=== PATIENT | male | born 1955 | race Caucasian/White ===

== ENCOUNTER 2018-07-16 15:01 | Inpatient (IN) | payer MEDICARE, OTHER ==
[~2018-07-16] VITALS: Ht 177.8 cm; Wt 91.6 kg
[2018-07-16] MEDS ORDERED: ASPIRIN81 MG (15:11)
[2018-07-16] MEDS ORDERED: ZYLOPRIM100 MG PO (15:11)
[2018-07-16] MEDS ORDERED: COREG6.25 MG PO (15:12)
[2018-07-16] MEDS ORDERED: COLCRYS0.6 MG PO (15:12)
[2018-07-16] MEDS ORDERED: LEXAPRO10 MG (15:13)
[2018-07-16] MEDS ORDERED: DOK250 MG PO (15:13)
[2018-07-16] MEDS ORDERED: LASIX80 MG PO (15:13)
[2018-07-16] MEDS ORDERED: HUMULIN N100 U/ML SC (15:14)
[2018-07-16] MEDS ORDERED: NEURONTIN 300300 MG PO (15:14)
[2018-07-16] MEDS ORDERED: KLOR-CON M2020 MEQ PO ×2 (15:15→17:44)
[2018-07-16] MEDS ORDERED: LIDOCAINE50 GM TOPICAL (15:15)
[2018-07-16] MEDS ORDERED: SYNTHROID175 MCG PO (15:15)
[2018-07-16] MEDS ORDERED: NITROSTAT0.4 MG SL (15:16)
[2018-07-16] MEDS ORDERED: REGLAN10 MG PO (15:16)
[2018-07-16] MEDS ORDERED: COUMADIN1 MG PO (15:17)
[2018-07-16] MEDS ORDERED: TRADJENTA5 MG PO (15:17)
[2018-07-16] MEDS ORDERED: NYSTATIN OINTME15 GM TOPICAL (15:17)
[2018-07-16] MEDS ORDERED: MULTIPLE VITAMI1 TA1 PO (15:17)
[2018-07-16] MEDS ORDERED: ZANTAC150 MG (15:18)
[2018-07-16 16:47] LABS: ANION GAP 12.1 mmol/L (8-16); CALCIUM 8.7 mg/dL (8.5-10.1); CARBON DIOXIDE 26.5 mmol/L (21.0-32.0); CREATININE - SERUM 4.8 mg/dL (0.6-1.3); POTASSIUM - SERUM 5.6 mmol/L (3.5-5.1)
[2018-07-16] MEDS ORDERED: BENADRYL25 MG PO (17:45)
[2018-07-16] MEDS ORDERED: FISH OIL 1,2001 CAP PO (17:46)
[2018-07-17] VITALS: BP 107/63
[2018-07-17 00:51] VITALS: BP 107/63; BMI 29.0
[2018-07-17 04:00] VITALS: BP 98/61
[2018-07-17 04:32] LABS: BASOPHILS 0.5 % (0-2); EOSINOPHILS 5.6 % (0-7); HEMATOCRIT 37.3 % (42.0-54.0); HEMOGLOBIN 12.4 g/dL (13.5-17.5); IMMATURE GRANULOCYTES 0.2 % (0-5); LYMPHOCYTES 9.6 % (15-50); MCH 30.6 pg (26.0-34.0); MCHC 33.2 g/dL (31.0-37.0); MCV 92.1 fL (80.0-100.0); MEAN PLATELET VOLUME 10.7 fL (7.4-10.4); NEUTROPHILS 73.1 % (40-80); PLATELET COUNT 149 10x3/uL (130-400); RBC 4.05 10x6/uL (4.20-6.10); RDW 15.6 % (11.5-14.5); WBC 9.2 10x3/uL (4.8-10.8)
[2018-07-17 04:53] LABS: ANION GAP 13.2 mmol/L (8-16); CALCIUM 7.9 mg/dL (8.5-10.1); CARBON DIOXIDE 27.2 mmol/L (21.0-32.0)
[2018-07-17 04:54] LABS: POTASSIUM - SERUM 3.4 mmol/L (3.5-5.1)
[2018-07-17 05:05] LABS: INR 1.15 (0.85-1.17); PROTIME 14.3 SECONDS (11.6-15.0)
[2018-07-17 07:57] VITALS: BP 90/61
[2018-07-17 08:00] VITALS: BP 121/80
[2018-07-17 13:16] VITALS: Ht 177.8 cm; Wt 91.6 kg
[2018-07-17 15:29] VITALS: BP 102/58
[2018-07-18 04:33] VITALS: BP 105/59
[2018-07-18 05:27] LABS: BASOPHILS 0.2 % (0-2); EOSINOPHILS 3.6 % (0-7); HEMOGLOBIN 12.7 g/dL (13.5-17.5); IMMATURE GRANULOCYTES 0.1 % (0-5); LYMPHOCYTES 10.7 % (15-50); MCH 31.1 pg (26.0-34.0); MCHC 33.4 g/dL (31.0-37.0); MCV 92.9 fL (80.0-100.0); MONOCYTES 8.7 % (2-11); NEUTROPHILS 76.7 % (40-80); PLATELET COUNT 133 10x3/uL (130-400); RBC 4.09 10x6/uL (4.20-6.10); RDW 15.8 % (11.5-14.5); WBC 8.9 10x3/uL (4.8-10.8)
[2018-07-18 05:41] LABS: ANION GAP 11.1 mmol/L (8-16); CALCIUM 8.1 mg/dL (8.5-10.1); CARBON DIOXIDE 28.1 mmol/L (21.0-32.0); POTASSIUM - SERUM 3.2 mmol/L (3.5-5.1)
[2018-07-18 07:54] VITALS: BP 121/75
[2018-07-18 11:36] VITALS: BP 107/73
== END 2018-07-18 14:36 | disposition home or self-care (01) | DRG 640 ==
LOC: D.ER 15:01 → D.M2 16:48
PROVIDERS: Emergency Medicine; Internal Medicine
PROC: 5A1D70Z Performance of Urinary Filtration, Intermittent, Less than 6 Hours Per Day (ICD-10-PCS; principal; 2018-07-16)
DX: E87.5 Hyperkalemia (principal); N18.6 End stage renal disease; I12.0 Hypertensive chronic kidney disease with stage 5 chronic kidney disease or end stage renal disease; I42.9 Cardiomyopathy, unspecified; E11.22 Type 2 diabetes mellitus with diabetic chronic kidney disease; Z99.2 Dependence on renal dialysis; I25.10 Atherosclerotic heart disease of native coronary artery without angina pectoris; Z95.0 Presence of cardiac pacemaker; D64.9 Anemia, unspecified

== ENCOUNTER 2019-01-21 14:46 | Inpatient (IN) | payer MEDICARE, OTHER ==
[~2019-01-21] VITALS: Ht 177.8 cm; Wt 87.1 kg
[~2019-01-21 14:46] MED LIST: ASPIRIN81 MG PO; BENADRYL25 MG PO; COLCRYS0.6 MG PO; COREG6.25 MG PO; COUMADIN1 MG PO; COUMADIN3 MG PO; DOK250 MG PO; FISH OIL 1,2001 CAP PO; HUMULIN N100 U/ML SC; KLOR-CON M2020 MEQ PO; LASIX80 MG PO; LEXAPRO10 MG PO; LIDOCAINE50 GM TOPICAL; MULTIPLE VITAMI1 TA1 PO; NEURONTIN 300300 MG PO; NITROSTAT0.4 MG SL; NYSTATIN OINTME15 GM TOPICAL; RANITIDINE HCL150 M1 PO; REGLAN10 MG PO; SYNTHROID175 MCG PO; SYNTHROID200 MC1 PO; TRADJENTA5 MG PO; ZYLOPRIM100 MG PO
--- NOTE | 2019-01-21 17:30 | NUR ---
SENT FROM [facility] FOR CHF, HYPERKALEMIA, K 6.1. PT ALERT, DENIES COMPLAINTS AT THIS TIME. ALERT, ANSWERING QUESTIONS APPROP.
--- NOTE | 2019-01-21 17:30 | NUR ---
RECIEVED REPORT FROM ER. ASKED THEM TO GIVE THE 1600 MEDS HE HAS YET TO GET
[2019-01-21 17:48] VITALS: BP 105/69
--- NOTE | 2019-01-21 18:03 | NUR ---
NEW ADMIT [facility] ER. OREINTED TO ROOM. CALL LIGHT IN REACH. WILL CONT. PLAN OF CARE.
--- NOTE | 2019-01-21 18:14 | MORECARE ---
CASE MANAGEMENT DISCHARGE SUMMARY PATIENT: RAUL FOX JR UNIT: [id number] ADM DATE: 01/21/19 AGE: 63 : 54 SEX: M ROOM/BED: D.2104 AUTHOR: BARRETT L[address] PHYSICIAN: REFERRING PHYSICIAN: AJITH LEO MD DATE OF SERVICE: 01/21/19 Discharge Plan Patient Name: RAUL FOX [facility] [facility] 1955 Planned Disposition: Home Anticipated Discharge Date: 01/23/19 Discharge Date: Expected LOS: 2 Initial Reviewer: [email or web address] Initial Review Date: 01/21/2019 Generated: 01/21/19 7:14 pm Patient Name: RAUL FOX Page 84142 at 1814 All edits/amendments must be made on the electronic document DICTATION DATE: 01/21/191813 SWITCHBOARD OPERATOR RECEPTIONIST: LUIS A 01/21/191813 RPT#: [id number] DC DATE: STATUS: ADM IN [facility] [address] [place] [address] END OF REPORT
--- NOTE | 2019-01-21 18:21 | MORECARE ---
CASE MANAGEMENT DISCHARGE SUMMARY PATIENT: RAUL RAMÍREZ JR UNIT: [id number] ADM DATE: 01/21/19 AGE: 63 : 54 SEX: M ROOM/BED: D.2104 AUTHOR: DOMINGO,DOC PHYSICIAN: REFERRING PHYSICIAN: AJITH LEO MD DATE OF SERVICE: 01/21/19 Discharge Plan Patient Name: RAUL RAMÍREZ Facility: [facility]:[place] : 1955 Planned Disposition: Home Anticipated Discharge Date: 01/23/19 Discharge Date: Expected LOS: 2 Initial Reviewer: [email or web address] Initial Review Date: 01/21/2019 Generated: 01/21/19 7:21 pm DCP- Discharge Planning Updated by [email or web address]: Jennifer Nicholson on 01/21/19 5:[address] Patient Name: RAUL RAMÍREZ Admission Status: ER Accout number: [id number] Admission Date: 01-21-2019 : 1955 Admission Diagnosis: Attending: AJITH LEO Current LOS: 1 Anticipated DC Date: 01-23-2019 Planned Disposition: Home Primary Insurance: MEDICARE A & B Discharge Planning Comments: CM met with patient to complete initial dc planning assessment. CM educated patient on the CM role and verbal consent given by patient to complete assessment. Patient lives at home independently with his . He goes to hemodialysis in [place] on . At discharge patient plans to return home with his and feels this is a safe discharge. CM discussed availability of home health, rehab services, and medical equipment. Patient denied known discharge needs at this time. CM will continue to follow and will assist as needed with dc plans/needs. Test Bore Helper: Jennifer Nicholson RN, [facility] DCPIA - Discharge Planning Initial Assessment Updated by [id number]: Jennifer Nicholson on 01/21/19 6:15 pm * Is the patient Alert and Oriented? Yes * PCP Dr. Gupta (not sure of spelling) in [place]. Same office as Dr. Ontiveros * Pharmacy [facility] in [place] * Preadmission Environment Home with Family * ADLs Independent * Equipment CPAP * List name and contact numbers for known caregivers / representatives who currently or will assist patient after discharge: Baylee Ramírez - - [phone] * Verbal permission to speak to the caregivers and representatives has been obtained from the patient. Yes * Community resources currently utilized None * Additional services required to return to the preadmission environment? No * Can the patient safely return to the preadmission environment? Yes * Has this patient been hospitalized within the prior 30 days at any hospital? No Last DP export: 01/21/19 5:14 pm Patient Name: RAUL RAMÍREZ Page [id number] at 1821 All edits/amendments must be made on the electronic document DICTATION DATE: 01/21/191819 INDUSTRIAL MILLWRIGHT: LUIS A 01/21/191819 RPT#: [id number] DC DATE: STATUS: ADM IN [facility] [address] [place] [address] END OF REPORT
[2019-01-21 18:23] VITALS: BP 108/74; BMI 29.7
[2019-01-21 20:31] VITALS: BP 109/79
--- NOTE | 2019-01-21 20:45 | NUR ---
INITIAL ROUNDS COMPLETED AT 1909 HRS. PT DENIED ANY DISCOMFORT. ASSESSMENT COMPLETED AT 1954 HRS. VSS. PACED RHYTHM PER CM HR 70. ALERT AND ORIENTED TO PERSON, PLACE AND TIME. JAMES. R CHEST HEMOSPLIT NOTED. LUNGS DIMINISHED IN BASES BILAT. O2 2LNC. 1+ BILAT PEDAL EDEMA. LOWER LEGS RED. IV TO LA WITH VANCOMYCIN INFUSING. SR UP X2, CALL LIGHT WITHIN REACH.
--- NOTE | 2019-01-21 23:56 | NUR ---
PT AWAKE; DENIES ANY DISCOMFORT. CALL LIGHT WITHIN REACH.
[2019-01-22 00:23] VITALS: BP 111/78
--- NOTE | 2019-01-22 03:10 | NUR ---
PT RESTING WITH EYES CLOSED. RESP EVEN AND REGULAR. SR UP X1, CALL LIGHT WITHIN REACH.
--- NOTE | 2019-01-22 04:06 | NUR ---
PT RESTING WITH EYES CLOSED. RESP EVEN AND REGULAR. SR UP X1, CALL LIGHT WITHIN REACH.
[2019-01-22 05:00] LABS: BASOPHILS 0.3 % (0-2); EOSINOPHILS 4.5 % (0-7); HEMATOCRIT 40.8 % (42.0-54.0); HEMOGLOBIN 13.5 g/dL (13.5-17.5); IMMATURE GRANULOCYTES 0.2 % (0-5); LYMPHOCYTES 11.7 % (15-50); MCH 31.8 pg (26.0-34.0); MCHC 33.1 g/dL (31.0-37.0); MCV 96.2 fL (80.0-100.0); MEAN PLATELET VOLUME 9.9 fL (7.4-10.4); MONOCYTES 9.8 % (2-11); NEUTROPHILS 73.5 % (40-80); RBC 4.24 10x6/uL (4.20-6.10); RDW 17.7 % (11.5-14.5); WBC 9.1 10x3/uL (4.8-10.8)
[2019-01-22 05:15] LABS: ALBUMIN 3.2 g/dL (3.4-5.0); ANION GAP 20.3 mmol/L (8-16); BILIRUBIN - TOTAL 1.13 mg/dL (0.2-1.3); CALCIUM 8.2 mg/dL (8.5-10.1); CARBON DIOXIDE 23.4 mmol/L (21.0-32.0); CREATININE - SERUM 4.8 mg/dL (0.6-1.3); MAGNESIUM - SERUM 1.9 mg/dL (1.8-2.4); POTASSIUM - SERUM 4.7 mmol/L (3.5-5.1); PROTEIN - SERUM 8.3 g/dL (6.4-8.2)
[2019-01-22 05:20] LABS: PLATELET COUNT 157 10x3/uL (130-400)
[2019-01-22 05:30] VITALS: BP 113/73
--- NOTE | 2019-01-22 06:08 | NUR ---
VSS THROUGHOUT NIGHT. PACED RHYTHM PER CM. PT STATED HE HAS SOB WHEN LYING DOWN. CURRENTLY SITING ON SIDE OF BED. NEEDS MET; WILL CONTINUE TO MONITOR.
[2019-01-22 08:04] VITALS: BP 99/77
--- NOTE | 2019-01-22 08:05 | NUR ---
PT STATES HE DOES NOT HOLD ANY AM MEDS FOR DIALYSIS.
--- NOTE | 2019-01-22 09:10 | NUR ---
PT TAKEN FOR DIALYSIS VIA BED.
[2019-01-22 10:41] VITALS: Ht 177.8 cm; Wt 87.1 kg
--- NOTE | 2019-01-22 12:52 | NUR ---
PT RETURNED FROM DIALYSIS VIA BED. DIALYSIS STATES THEY GOT OFF 3L.
[2019-01-22 15:11] VITALS: BP 122/73
--- NOTE | 2019-01-22 19:48 | NUR ---
RESUMING PATIENT CARE. PATIENT IS ALERT AND ORIENTED, SITTING ON EDGE OF BED. RESPIRATIONS AREE EVEN AND UNLABORED. NO S/S OF DISTRESS. NO C/O PAIN. DENIES NEEDS AT THIS TIME. CALL LIGHT WITHIN REACH. WILL CPOC.
[2019-01-22 21:26] VITALS: BP 113/73
[2019-01-23 00:29] VITALS: BP 119/72
[2019-01-23 06:22] VITALS: BP 102/75
--- NOTE | 2019-01-23 07:15 | NUR ---
REPORT RECIEVED AND MORNING ROUNDING COMPLETE. PT SITTING UP IN BED. STATES SLEPT WELL. PT IS WEARING NASAL CANNULA AND RECIEVING 2L 02. LEFT AC PIV IS SALINE LOCKED. PT HAS NO NEEDS AT THIS TIME CALL LIGHT WITHIN REACH AND BED IN LOWEST POSITION.
[2019-01-23 09:52] VITALS: BP 114/72
[2019-01-23 15:18] VITALS: BP 118/70
--- NOTE | 2019-01-23 17:26 | NUR ---
I have reviewed this patient and I concur with the Shift Assessment completed by the Licensed Practical Nurse today this shift.
--- NOTE | 2019-01-23 19:41 | NUR ---
RESUMING PATIENT CARE. PATIENT IS ALERT AND ORIENTED. PATIENT IS SITTING ON SIDE OF BED. PATIENT REMAINS ON 2L NC. DENIES NEEDS AT THIS TIME. NO S/S OF DISTRESS. NO C/O PAIN. CALL LIGHT WITHIN REACH. WILL CPOC.
[2019-01-23 21:01] VITALS: BP 117/76
--- NOTE | 2019-01-24 00:20 | NUR ---
PATIENT RESTING COMFORTABLY IN BED. RESPIRATIONS ARE EVEN AND UNLABORED. PATIENT REMAINS ON 2 L NC. NO S/S OF DISTRESS. NO C/O PAIN. CALL LIGHT WITHIN REACH. WILL CPOC.
[2019-01-24 01:06] VITALS: BP 129/67
--- NOTE | 2019-01-24 04:37 | NUR ---
PATIENT RESTING COMFORTABLY IN BED. RESPIRATIONS ARE EVEN AND UNLABORED. PATIENT LL REAPPLIED. NO S/S OF DISTRESS. NO C/O PAIN. DENIES NEEDS AT THIS TIME. CALL LIGHT WITHIN REACH. WILL CPOC.
[2019-01-24 06:05] VITALS: BP 113/80
[2019-01-24 07:21] LABS: INR 1.29 (0.85-1.17); PROTIME 15.5 SECONDS (11.6-15.0)
--- NOTE | 2019-01-24 07:21 | NUR ---
REPORT RECEIVED. WILL CONTINUE WITH POC. PT CURRENTLY LYING SEMI FOWLERS. CALL LIGHT W/I REACH. PT IS AAO AND UP AD JASON. RR EVEN AND UNLABORED ON 2L 02. R.AC PIV IS SALINE LOCKED. PT DENIES ANY NEEDS AT THIS TIME. NO S/S OF DISTRESS NOTED. WILL CTM.
[2019-01-24 07:23] LABS: ALBUMIN 3.1 g/dL (3.4-5.0); BILIRUBIN - TOTAL 2.27 mg/dL (0.2-1.3); CALCIUM 8.1 mg/dL (8.5-10.1); CARBON DIOXIDE 20.6 mmol/L (21.0-32.0); CREATININE - SERUM 5.2 mg/dL (0.6-1.3); POTASSIUM - SERUM 4.6 mmol/L (3.5-5.1); VANCOMYCIN - RANDOM 29.7 ug/mL (10.0-20.0)
[2019-01-24 08:07] LABS: BASOPHILS 0.4 % (0-2); EOSINOPHILS 1.8 % (0-7); HEMATOCRIT 37.9 % (42.0-54.0); HEMOGLOBIN 12.7 g/dL (13.5-17.5); IMMATURE GRANULOCYTES 0.4 % (0-5); LYMPHOCYTES 8.9 % (15-50); MCH 31.9 pg (26.0-34.0); MCHC 33.5 g/dL (31.0-37.0); MCV 95.2 fL (80.0-100.0); MEAN PLATELET VOLUME 10.6 fL (7.4-10.4); MONOCYTES 10.3 % (2-11); NEUTROPHILS 78.2 % (40-80); PLATELET COUNT 158 10x3/uL (130-400); RBC 3.98 10x6/uL (4.20-6.10); WBC 9.9 10x3/uL (4.8-10.8)
--- NOTE | 2019-01-24 09:00 | NUR ---
PT TAKEN TO DIALYSIS VIA WHEELCHAIR. WILL CTM.
[2019-01-24 09:38] VITALS: BP 110/80
--- NOTE | 2019-01-24 13:54 | NUR ---
I have reviewed this patient and I concur with the Shift Assessment completed by the Licensed Practical Nurse today this shift.
--- NOTE | 2019-01-24 18:42 | NUR ---
PT CURRENTLY LYING SEMI FOWLERS. CALL LIGHT W/I REACH. PT IS AAO AND UP AD JASON. RR EVEN AND UNLABORED ON 2L 02. R.AC PIV IS SALINE LOCKED. NO S/S OF DISTRESS NOTED. PT DENIES ANY NEEDS. WILL PASS REPORT AND CONTINUE WITH POC.
--- NOTE | 2019-01-24 19:35 | NUR ---
RESUMING PATIENT CARE. PATIENT IS ALERT AND ORIENTED, SITTING ON EDGE OF BED. RESPIRATIONS ARE EVEN AND UNLABORED. NO S/S OF DISTRESS. NO C/O PAIN. PATIENT REMAINS ON 2L NC. DENIES NEEDS AT THIS TIME. CALL LIGHT WITHIN REACH. WILL CPOC.
[2019-01-24 20:00] VITALS: BP 110/68
[2019-01-25] VITALS: BP 103/61
[2019-01-25 04:30] VITALS: BP 109/62
[2019-01-25 05:45] LABS: BASOPHILS 0.4 % (0-2); EOSINOPHILS 3.8 % (0-7); HEMATOCRIT 37.1 % (42.0-54.0); HEMOGLOBIN 12.4 g/dL (13.5-17.5); IMMATURE GRANULOCYTES 0.4 % (0-5); LYMPHOCYTES 11.7 % (15-50); MCH 31.8 pg (26.0-34.0); MCHC 33.4 g/dL (31.0-37.0); MCV 95.1 fL (80.0-100.0); MONOCYTES 12.2 % (2-11); NEUTROPHILS 71.5 % (40-80); PLATELET COUNT 138 10x3/uL (130-400)
[2019-01-25 06:13] LABS: ANION GAP 20.2 mmol/L (8-16); CARBON DIOXIDE 23.6 mmol/L (21.0-32.0); CREATININE - SERUM 5.4 mg/dL (0.6-1.3); VANCOMYCIN - RANDOM 21.1 ug/mL (10.0-20.0)
[2019-01-25 06:14] LABS: POTASSIUM - SERUM 3.8 mmol/L (3.5-5.1)
--- NOTE | 2019-01-25 08:30 | NUR ---
AM ROUNDS COMPLETED. VSS, AAOX4, PT SITTING UP IN BED WITH EYES OPEN. NO S/S OF DISTRESS, RR EVEN AND UNLABORED. ASSIST PT WITH DEPENDS. AM MEDS GIVEN. PT DENIES AY FURTHER NEEDS AT THIS TIME. PT CURRENTLY HAVING BREAKFAST. WILL CPOC. CL IN REACH, BED IN LOW, SR UPX2.
[2019-01-25 08:58] VITALS: BP 100/65
--- NOTE | 2019-01-25 11:54 | EC ---
PATIENT:RAUL FOX JR DATE OF SERVICE: 01/21/19 SEX: M MEDICAL RECORD: [id number] DATE OF : [birth year] LOCATION:D.M2 D.210 AGE OF PATIENT: 64 ADMISSION DATE: 01/21/19 REFERRING PHYSICIAN: INTERPRETING PHYSICIAN: SAMUEL ANDERSON MD ECHOCARDIOGRAM REPORT ECHO CHARGES 4 ECHO COMPLETE Date: 01/23/19 CLINICAL DIAGNOSIS: SYNCOPAL EPISODE ECHOCARDIOGRAPHIC MEASUREMENTS (adult normal given) AC root (d.<3.7cm) 2.5 cm LV Septum d (<1.2 cm> 1.3 cm Valve Excursion 1.5 cm LV Septum (systole) 1.5 cm Left Atria (s.<4.0cm> 4.9 cm LVPW d(<1.2cm) 1.2 cm RV (d.<2.3cm) 4.2 cm LVPW (sytole) 1.6 cm LV diastole(<5.6CM) 5.5 cm MV E-F(>70mm/sec) cm LV systole 4.7 cm LVOT Diameter 1.7 cm MV exc.(>10mm) cm Est.ejection fraction (50-75%) % DOPPLER: LVIT cm/sec A 0 cm/sec E 83 cm/sec LA cm/sec RVSP 69.2 mmHg LVOT 100 cm/sec AOP1/2T m/s Asc. Ao 170 cm/sec RVOT 65 cm/sec RA cm/sec PA 73 cm/sec AV Gradient Peak 11.6 mmHg AV Mean 5.3 mmHg AV Area 1.5 cm MV Gradient Peak 4.7 mmHg MV Mean 2.5 mmHg MV Area cm COMMENTS: Administrative Judge: Larry [facility] Store Clerk Cashier: 1 Dr. Anderson TAPE# PACS Pericardial Effusion N DATE OF SERVICE: 01/23/2019 FINDINGS: 1. Left ventricular chamber size is upper limits of normal. Left ventricular systolic function is markedly reduced, overall ejection fraction 20%. 2. Left atrium is dilated at 4.9 cm. Right atrium and right ventricular chamber sizes are as well mildly dilated. 3. Valvular structures have normal structure and motion. 4. Doppler interrogation reveals moderate mitral regurgitation, mild tricuspid regurgitation, no other valvular insufficiency or stenosis. Pulmonary systolic ECHOCARDIOGRAM REPORT [id number] RAUL FOX JR pressure is elevated, estimated at 69 mmHg. 5. No evidence of pericardial effusion or left ventricular thrombus. TRANSINT:[id number] Voice Confirmation ID: [id number] DOCUMENT ID: [id number] SAMUEL ANDERSON MD at 1154 CC: [id number] DICTATION DATE: 01/24/19 1126 BLANKET WEAVER: 01/24/19 1138 ADM IN [facility] [address] [id number]
[2019-01-25 12:53] VITALS: BP 110/74
[2019-01-25 16:07] VITALS: BP 104/60
--- NOTE | 2019-01-25 17:30 | NUR ---
PT CURRENTLY SITTING ON THE EDGE OF THE BED. IV ZOSYN COMPLETED. PT DENIES ANY FURTHER NEEDS AT THIS TIME. CILL CPOC. CL IN REACH, BED IN LOW.
--- NOTE | 2019-01-25 19:09 | NUR ---
RESUMING PATIENT CARE. PATIENT IS ALERT AND ORIENTED. RESPIRATIONS EVEN AND UNLABORED. NO S/S OF DISTRESS. NO C/O PAIN. CALL LIGHT WITHIN REACH. WILL CPOC.
[2019-01-25 20:00] VITALS: BP 100/69
[2019-01-26] VITALS: BP 107/73
--- NOTE | 2019-01-26 02:42 | NUR ---
PATIENT IS ALERT AND ORIENTED. RESPIRATIONS ARE EVEN AND UNLABORED. PATIENT REMAINS ON 2L NC. PATIENT PACING ON WHEEL GRINDER. NO S/S OF DISTRESS. NO C/O PAIN. CALL LIGHT WITHIN REACH. WILL CPOC.
[2019-01-26 04:00] VITALS: BP 105/69
[2019-01-26 05:02] LABS: BASOPHILS 0.4 % (0-2); EOSINOPHILS 2.9 % (0-7); HEMATOCRIT 37.2 % (42.0-54.0); HEMOGLOBIN 12.4 g/dL (13.5-17.5); IMMATURE GRANULOCYTES 0.4 % (0-5); LYMPHOCYTES 10.3 % (15-50); MCH 31.9 pg (26.0-34.0); MCHC 33.3 g/dL (31.0-37.0); MCV 95.6 fL (80.0-100.0); MEAN PLATELET VOLUME 10.5 fL (7.4-10.4); MONOCYTES 9.5 % (2-11); NEUTROPHILS 76.5 % (40-80); PLATELET COUNT 151 10x3/uL (130-400); RBC 3.89 10x6/uL (4.20-6.10); RDW 17.7 % (11.5-14.5); WBC 10.1 10x3/uL (4.8-10.8)
[2019-01-26 05:25] LABS: ANION GAP 23.9 mmol/L (8-16); CALCIUM 8.1 mg/dL (8.5-10.1); CARBON DIOXIDE 19.6 mmol/L (21.0-32.0)
[2019-01-26 05:26] LABS: POTASSIUM - SERUM 4.5 mmol/L (3.5-5.1)
--- NOTE | 2019-01-26 08:00 | NUR ---
RECIEVED BEDSIDE REPORT. AM ROUNDS COMPLETED. AAOX3, VSS, RR EVEN AND UNLABORED, PT SITTING UP IN CHAIR. AM MEDS GIVEN. PT BILAT LOWER LEGS +1 PITTING. DENIES ANY NEEDS FOR PAIN. PT AWAITING DIALYSIS. WILL CPOC. CL IN REACH, BED IN LOW.
--- NOTE | 2019-01-26 09:10 | NUR ---
PT OUT FOR DIALYSIS. WILL CPOC.
[2019-01-26 09:11] VITALS: BP 129/79
--- NOTE | 2019-01-26 12:45 | NUR ---
PT BACK FROM DIALYSIS. POST DIALYSIS VS, BP 107/67, HR 71, T 98.0, R 16. NABEEL FROM DIALYSIS STATES 2L WAS TAKEN OUT OF PT AND PT WILL CONTINUE DIALYSIS TOM, TUESDAY.
[2019-01-26 15:49] VITALS: BP 100/69
[2019-01-26 20:00] VITALS: BP 107/70
--- NOTE | 2019-01-26 20:20 | NUR ---
RESUMING PT CARE. PT IS ALERT LAYING IN BED WITH NO C/O VOICED AT THIS TIME. NO S/S OF DISTRESS. BED IN LOW POSITION WITH CALL LIGHT IN REACH. SIDE RAILS UP X 2. WILL CONTINUE TO MONITOR PT AND FOLLOW PLAN OF CARE.
[2019-01-27] VITALS: BP 103/69
[2019-01-27 04:00] VITALS: BP 102/69
--- NOTE | 2019-01-27 05:03 | NUR ---
I have reviewed this patient and I concur with the Shift Assessment completed by the Licensed Practical Nurse today this shift.
[2019-01-27 05:36] LABS: BASOPHILS 0.5 % (0-2); EOSINOPHILS 3.3 % (0-7); HEMATOCRIT 37.5 % (42.0-54.0); HEMOGLOBIN 12.4 g/dL (13.5-17.5); IMMATURE GRANULOCYTES 0.4 % (0-5); LYMPHOCYTES 10.6 % (15-50); MCH 31.8 pg (26.0-34.0); MCHC 33.1 g/dL (31.0-37.0); MCV 96.2 fL (80.0-100.0); NEUTROPHILS 75.2 % (40-80); PLATELET COUNT 151 10x3/uL (130-400); RDW 17.8 % (11.5-14.5); WBC 9.4 10x3/uL (4.8-10.8)
[2019-01-27 05:56] LABS: ANION GAP 23.1 mmol/L (8-16); CALCIUM 8.2 mg/dL (8.5-10.1); CARBON DIOXIDE 21.2 mmol/L (21.0-32.0); CREATININE - SERUM 7.1 mg/dL (0.6-1.3); POTASSIUM - SERUM 4.3 mmol/L (3.5-5.1)
[2019-01-27 08:59] VITALS: BP 105/71
--- NOTE | 2019-01-27 09:48 | NUR ---
PT ASKING FOR SOMETHING FOR PAIN, DOES NOT HAVE ANYTHING ORDRED. PAGED NORBERT CARUSO APN, WAITING RETAIL SERVICE REPRESENTATIVE BACK.
--- NOTE | 2019-01-27 11:26 | NUR ---
GAVE TRAMADOL FOR PAIN LEVEL OF 7/10. PT GETTING DIALYSIS AT THIS TIME. VANCOMYCIN IVPB GIVEN TO DIALYSIS NURSE TO INFUSE. PT DENIES ANY OTHER NEEDS AT THIS TIME. CALL LIGHT IN REACH, NAD NOTED, WILL CONITNUE TO MONITOR.
[2019-01-27 11:30] VITALS: BP 101/66
[2019-01-27 11:34] LABS: INR 1.16 (0.85-1.17); PROTIME 14.3 SECONDS (11.6-15.0)
[2019-01-27 15:30] VITALS: BP 99/63
--- NOTE | 2019-01-27 19:30 | NUR ---
RECEIVED REPORT, WILL ASSUME CARE OF PT, PT COMPLAINS OF SHOULDER AND BACK PAIN, GAVE TRAMODOL ORDER, BED IS LOW, SRX2, CALL LIGHT IN REACH, WILL CONTINUE PLAN OF CARE
[2019-01-27 20:00] VITALS: BP 106/55
[2019-01-28] VITALS: BP 98/66
--- NOTE | 2019-01-28 00:40 | NUR ---
I have reviewed this patient and I concur with the Shift Assessment completed by the Licensed Practical Nurse today this shift.
[2019-01-28 04:00] VITALS: BP 131/71
--- NOTE | 2019-01-28 04:30 | NUR ---
PT SITTING UP ON SIDE OF BED, DENIES ANY NEEDS
[2019-01-28 05:11] LABS: BASOPHILS 0.7 % (0-2); EOSINOPHILS 3.8 % (0-7); HEMATOCRIT 36.9 % (42.0-54.0); HEMOGLOBIN 12.2 g/dL (13.5-17.5); IMMATURE GRANULOCYTES 0.3 % (0-5); LYMPHOCYTES 10.5 % (15-50); MCHC 33.1 g/dL (31.0-37.0); MCV 96.9 fL (80.0-100.0); MEAN PLATELET VOLUME 10.2 fL (7.4-10.4); NEUTROPHILS 72.7 % (40-80); PLATELET COUNT 145 10x3/uL (130-400); RBC 3.81 10x6/uL (4.20-6.10); WBC 8.6 10x3/uL (4.8-10.8)
[2019-01-28 05:41] LABS: ALBUMIN 3.1 g/dL (3.4-5.0); ANION GAP 23.5 mmol/L (8-16); BILIRUBIN - TOTAL 1.49 mg/dL (0.2-1.3); CALCIUM 8.6 mg/dL (8.5-10.1); CARBON DIOXIDE 20.5 mmol/L (21.0-32.0); CREATININE - SERUM 6.1 mg/dL (0.6-1.3); MAGNESIUM - SERUM 2.3 mg/dL (1.8-2.4); PROTEIN - SERUM 8.2 g/dL (6.4-8.2)
[2019-01-28 07:30] VITALS: BP 99/71
--- NOTE | 2019-01-28 08:38 | NUR ---
AM MEDS GIVEN AT THIS TIME. PT TOOK MEDICATIONS WITH NO TROUBLE SWALLOWING. PT DENIES ANY NEEDS AT THIS TIME. CALL LIGHT IN REACH, NAD NOTED, WILL CONTINUE TO MONITOR.
[2019-01-28 11:30] VITALS: BP 115/59
[2019-01-28 15:30] VITALS: BP 94/58
--- NOTE | 2019-01-28 19:30 | NUR ---
RECEIVED REPORT, WILL ASSUME CARE OF PT, PT SITTING ON SIDE OF BED, DENIES ANY NEEDS AT THIS TIME, CALL LIGHT IN REACH, WILL CONTINUE PLAN OF CARE
[2019-01-28 21:53] VITALS: BP 105/72
--- NOTE | 2019-01-29 02:28 | NUR ---
I have reviewed this patient and I concur with the Shift Assessment completed by the Licensed Practical Nurse today this shift.
[2019-01-29 04:53] VITALS: BP 103/65
[2019-01-29 07:13] LABS: BASOPHILS 0.6 % (0-2); HEMATOCRIT 37.9 % (42.0-54.0); HEMOGLOBIN 12.4 g/dL (13.5-17.5); IMMATURE GRANULOCYTES 0.6 % (0-5); LYMPHOCYTES 11.9 % (15-50); MCHC 32.7 g/dL (31.0-37.0); MCV 97.7 fL (80.0-100.0); MEAN PLATELET VOLUME 10.2 fL (7.4-10.4); MONOCYTES 11.9 % (2-11); PLATELET COUNT 158 10x3/uL (130-400); RBC 3.88 10x6/uL (4.20-6.10); RDW 18.5 % (11.5-14.5); WBC 8.6 10x3/uL (4.8-10.8)
[2019-01-29 07:20] LABS: ALBUMIN 3.2 g/dL (3.4-5.0); ANION GAP 20.6 mmol/L (8-16); BILIRUBIN - TOTAL 1.46 mg/dL (0.2-1.3); CALCIUM 8.7 mg/dL (8.5-10.1); CARBON DIOXIDE 24.1 mmol/L (21.0-32.0); CREATININE - SERUM 7.5 mg/dL (0.6-1.3); POTASSIUM - SERUM 4.7 mmol/L (3.5-5.1); PROTEIN - SERUM 8.2 g/dL (6.4-8.2)
--- NOTE | 2019-01-29 08:30 | NUR ---
AM MEDS GIVEN AT THIS TIME. PT UP TO SIDE OF BED, STATES THAT HE FEELS FULL THIS MORNING. DOES NOT WANT TO EAT BREAKFAST. PT A/O X4, RESP EVEN AND NONLABORED ON 2L. PT DENIES ANY NEEDS AT THIS TIME. CALL LIGHT IN REACH, NAD NOTED,W ILL CONTINUE TO MONITOR.
[2019-01-29 08:50] VITALS: BP 109/83
--- NOTE | 2019-01-29 09:34 | MORECARE ---
CASE MANAGEMENT DISCHARGE SUMMARY PATIENT: RAUL RAMÍREZ JR UNIT: [id number] ADM DATE: 01/21/19 AGE: 64 : 53 SEX: M ROOM/BED: D.2104 AUTHOR: DOMINGO,DOC PHYSICIAN: REFERRING PHYSICIAN: AJITH LEO MD DATE OF SERVICE: 01/29/19 Discharge Plan Patient Name: RAUL RAMÍREZ Facility: [facility]:[place] : 1955 Planned Disposition: Home Anticipated Discharge Date: 01/29/19 Discharge Date: Expected LOS: 8 Initial Reviewer: [email or web address] Initial Review Date: 01/21/2019 Generated: 01/29/19 10:34 am Comments DCP- Discharge Planning Updated by [email or web address]: Oneil Llamas on 01/29/19 8:[address] Patient Name: RAUL RAMÍREZ Encounter No: [id number] : 1955 Primary Insurance: MEDICARE A & B Anticipated DC Date: 01-29-2019 Planned Disposition: Home DCP follow-up note: CM MET WITH PT IN ROOM TO DISCUSS DISCHARGE NEEDS AND PLANNING. CM DISCUSSED AVAILABILITY OF HOME HEALTH, REHAB SERVICES AND MEDICAL EQUIPMENT. PT DENIES DISCHARGE NEEDS OTHER THAN NEEDING HELP WITH GETTING A RIDE HOME TODAY. IMPORTANT MESSAGE FROM MEDICARE PROVIDED AND EXPLAINED. CM CALLED PT'S SPOUSE, BAYLEE, , INFORMED OF DISCHARGE TODAY; BAYLEE STATES SHE HAS A FRIEND THAT WILL DIESEL LOCOMOTIVE FIRER/FIREMAN PT AT ABOUT 2PM TODAY. PT NOTIFIED, DENIES FURHTER NEEDS. UYEN Irvin DCP- Discharge Planning Updated by [email or web address]: Jennifer Nicholson on 01/21/19 4:[address] Patient Name: RAUL RAMÍREZ Admission Status: ER Accout number: [id number] Admission Date: 01-21-2019 : 1955 Admission Diagnosis: Attending: AJITH LEO Current LOS: 1 Anticipated DC Date: 01-23-2019 Planned Disposition: Home Primary Insurance: MEDICARE A & B Discharge Planning Comments: CM met with patient to complete initial dc planning assessment. CM educated patient on the CM role and verbal consent given by patient to complete assessment. Patient lives at home independently with his . He goes to hemodialysis in [place] on . At discharge patient plans to return home with his and feels this is a safe discharge. CM discussed availability of home health, rehab services, and medical equipment. Patient denied known discharge needs at this time. CM will continue to follow and will assist as needed with dc plans/needs. It Architect: Jennifer Nicholson RN, [facility] DCPIA - Discharge Planning Initial Assessment Updated by [email or web address]: Jennifer Nicholson on 01/21/19 6:15 pm * Is the patient Alert and Oriented? Yes * PCP Dr. Gupta (not sure of spelling) in [place]. Same office as Dr. Ontiveros * Pharmacy [facility] in [place] * Preadmission Environment Home with Family * ADLs Independent * Equipment CPAP * List name and contact numbers for known caregivers / representatives who currently or will assist patient after discharge: Baylee Ramírez - - [phone] * Verbal permission to speak to the caregivers and representatives has been obtained from the patient. Yes * Community resources currently utilized None * Additional services required to return to the preadmission environment? No * Can the patient safely return to the preadmission environment? Yes * Has this patient been hospitalized within the prior 30 days at any hospital? No Coverage Notice Reviewer: [id number] - Oneil Llamas Notice Issued Date-Time: 01/29/2019 9:00 Notice Type: IM Discharge Notice Notice Delivered To: Patient Relationship to Patient: Automobile Upholstery Trim Installer Name: Delivery Method: HAND - Hand Delivered Rosa M Days: Prior Verbal Notification: Recipient Understood Notice: Yes Recipient Signature: Yes Med Rec Note Co-signed by Attending: Coverage Notice Comment: Last DP export: 01/21/19 4:21 pm Patient Name: RAUL RAMÍREZ Page [id number] at 0934 All edits/amendments must be made on the electronic document DICTATION DATE: 01/29/19932 CEO: LUIS A 01/29/19932 RPT#: [id number] DC DATE: STATUS: ADM IN [facility] [address] [place] [address] END OF REPORT
--- NOTE | 2019-01-29 09:45 | NUR ---
PT TRANSFERED TO DIALYSIS AT THIS TIME.
--- NOTE | 2019-01-29 10:58 | MORECARE ---
CASE MANAGEMENT DISCHARGE SUMMARY PATIENT: RAUL FOX JR UNIT: [id number] ADM DATE: 01/21/19 AGE: 64 : 53 SEX: M ROOM/BED: D.2104 AUTHOR: DOMINGO,DOC PHYSICIAN: REFERRING PHYSICIAN: AJITH LEO MD DATE OF SERVICE: 01/29/19 Discharge Plan Patient Name: RAUL FOX Facility: [facility]:[place] : 1955 Planned Disposition: Home Anticipated Discharge Date: 01/29/19 Discharge Date: Expected LOS: 8 Initial Reviewer: [email or web address] Initial Review Date: 01/21/2019 Generated: 01/29/19 11:58 am Comments DCP- Discharge Planning Updated by [id number]: Oneil Carpenter on 01/29/19 9:[address] Patient Name: RAUL FOX Encounter No: [id number] : 1955 Primary Insurance: MEDICARE A & B Anticipated DC Date: 01-29-2019 Planned Disposition: Home DCP follow-up note: CM MET WITH PT IN ROOM TO DISCUSS DISCHARGE NEEDS AND PLANNING. CM DISCUSSED AVAILABILITY OF HOME HEALTH, REHAB SERVICES AND MEDICAL EQUIPMENT. PT DENIES DISCHARGE NEEDS OTHER THAN NEEDING HELP WITH GETTING A RIDE HOME TODAY. IMPORTANT MESSAGE FROM MEDICARE PROVIDED AND EXPLAINED. CM CALLED PT'S SPOUSE, BAYLEE, , INFORMED OF DISCHARGE TODAY; BAYLEE STATES SHE HAS A FRIEND THAT WILL RADIOACTIVITY TECHNICIAN PT AT ABOUT 2PM TODAY. PT NOTIFIED, DENIES FURHTER NEEDS. Oneil Carpenter, CASE MANAGEMENT Appended by Oneil Carpenter on 01/29/2019 10:55 CDT: CM SPOKE TO LIBERTY FRY AND AFTER CONSULTING WITH DR. ALEMAN, ADVISED CM THAT PT DOES NOT FEEL WELL ENOUGH TO GO HOME AND THE DOCTOR WANTS PT EVALUATED FOR INPATIENT REHAB. CM SPOKE TO PT IN THE DIALYSIS SUITE WHO INFORMED CM THAT HE WOULD LIKE REHAB AT [facility] AND DOES FEEL WEAK. CM CALLED PT'S SPOUSE, BAYLEE, , INFORMED OF PT'S REQUEST FOR REHAB AT [facility], CANCELLED TRANSPORTATION FOR RADIOACTIVITY TECHNICIAN TODAY. CM NOTIFIED [facility] IN[facility]IENT [facility] OF PRESCREEN ORDER AND PT'S REQUEST. RN CM HOUSE NOTIFIED AND ORDER FOR PHYSICAL THERAPY RE EVALUATION OBTAINED. CM WAITING PHYSICAL THERAPY RE EVALUATION RESULTS WELL INPATIENT REHAB PRESCREENING DETERMINATION FROM [facility] INPATIENT REHAB. ONEIL CARPENTER, CASE MANAGEMENT DCP- Discharge Planning Updated by [id number]: Jennifer Nicholson on 01/21/19 4:[address] Patient Name: RAUL FOX Admission Status: ER Accout number: [id number] Admission Date: 01-21-2019 : 1955 Admission Diagnosis: Attending: AJITH LEO Current LOS: 1 Anticipated DC Date: 01-23-2019 Planned Disposition: Home Primary Insurance: MEDICARE A & B Discharge Planning Comments: CM met with patient to complete initial dc planning assessment. CM educated patient on the CM role and verbal consent given by patient to complete assessment. Patient lives at home independently with his . He goes to hemodialysis in [place] on . At discharge patient plans to return home with his and feels this is a safe discharge. CM discussed availability of home health, rehab services, and medical equipment. Patient denied known discharge needs at this time. CM will continue to follow and will assist as needed with dc plans/needs. Dynamic Etching Processor: Jennifer Nicholson RN, [facility] DCPIA - Discharge Planning Initial Assessment Updated by [email or web address]: Jennifer Nicholson on 01/21/19 6:15 pm * Is the patient Alert and Oriented? Yes * PCP Dr. Gupta (not sure of spelling) in [place]. Same office as Dr. Ontiveros * Pharmacy [facility] in [place] * Preadmission Environment Home with Family * ADLs Independent * Equipment CPAP * List name and contact numbers for known caregivers / representatives who currently or will assist patient after discharge: Baylee Posey - [phone] * Verbal permission to speak to the caregivers and representatives has been obtained from the patient. Yes * Community resources currently utilized None * Additional services required to return to the preadmission environment? No * Can the patient safely return to the preadmission environment? Yes * Has this patient been hospitalized within the prior 30 days at any hospital? No Coverage Notice Reviewer: [id number] - Oneil Carpenter Notice Issued Date-Time: 01/29/2019 9:00 Notice Type: IM Discharge Notice Notice Delivered To: Patient Relationship to Patient: Obiee Consultant Name: Delivery Method: HAND - Hand Delivered Rosa M Days: Prior Verbal Notification: Recipient Understood Notice: Yes Recipient Signature: Yes Med Rec Note Co-signed by Attending: Coverage Notice Comment: Last DP export: 01/29/19 8:34 a Patient Name: RAUL FOX Page [id number] at 1058 All edits/amendments must be made on the electronic document DICTATION DATE: 01/29/191056 EQUITY TRADER: LUIS A 01/29/19 105 RPT#: [id number] DC DATE: STATUS: ADM IN [facility] [address] [place] [address] END OF REPORT
--- NOTE | 2019-01-29 12:12 | NUR ---
Rehab Note- Acute Inpatient Rehab prescreen order received. The patient hasn't been seen per PT since 01/23, spoke with MARYLIN Campuzano and he is going to get PT to see the patient. Will follow at this time to see what the patient;s functional mobility is at this time. Thank you for this referral! Nuris Fonseca RN Clinical Liaison, [facility] Rehab
--- NOTE | 2019-01-29 13:00 | NUR ---
PT BACK TO ROOM, FIXING TO EAT LUNCH. PT DENIES ANY NEEDS AT THIS TIME. CALL LIGHT IN REACH, NAD NOTED, WILL CONTINUE TO MONITOR.
[2019-01-29 15:42] VITALS: BP 108/71
--- NOTE | 2019-01-29 17:03 | MORECARE ---
CASE MANAGEMENT DISCHARGE SUMMARY PATIENT: RAUL FOX JR UNIT: [id number] ADM DATE: 01/21/19 AGE: 64 : 53 SEX: M ROOM/BED: D.2104 AUTHOR: DOMINGO,DOC PHYSICIAN: REFERRING PHYSICIAN: AJITH LEO MD DATE OF SERVICE: 01/29/19 Discharge Plan Patient Name: RAUL FOX Facility: [facility]:[place] : 1955 Planned Disposition: Home Anticipated Discharge Date: 01/29/19 Discharge Date: Expected LOS: 8 Initial Reviewer: [id number] Initial Review Date: 01/21/2019 Generated: 01/29/19 6:03 pm Comments DCP- Discharge Planning Updated by [id number]: Oneil Carpenter on 01/29/19 9:[address] Patient Name: RAUL FOX Encounter No: [id number] : 1955 Primary Insurance: MEDICARE A & B Anticipated DC Date: 01-29-2019 Planned Disposition: Home DCP follow-up note: CM MET WITH PT IN ROOM TO DISCUSS DISCHARGE NEEDS AND PLANNING. CM DISCUSSED AVAILABILITY OF HOME HEALTH, REHAB SERVICES AND MEDICAL EQUIPMENT. PT DENIES DISCHARGE NEEDS OTHER THAN NEEDING HELP WITH GETTING A RIDE HOME TODAY. IMPORTANT MESSAGE FROM MEDICARE PROVIDED AND EXPLAINED. CM CALLED PT'S SPOUSE, BAYLEE, , INFORMED OF DISCHARGE TODAY; BAYLEE STATES SHE HAS A FRIEND THAT WILL TOE FORMER PT AT ABOUT 2PM TODAY. PT NOTIFIED, DENIES FURHTER NEEDS. Oneil Carpenter, CASE MANAGEMENT Appended by Oneil Carpenter on 01/29/2019 10:55 CDT: CM SPOKE TO LIBERTY FRY AND AFTER CONSULTING WITH DR. ALEMAN, ADVISED CM THAT PT DOES NOT FEEL WELL ENOUGH TO GO HOME AND THE DOCTOR WANTS PT EVALUATED FOR INPATIENT REHAB. CM SPOKE TO PT IN THE DIALYSIS SUITE WHO INFORMED CM THAT HE WOULD LIKE REHAB AT [place] AND DOES FEEL WEAK. CM CALLED PT'S SPOUSE, BAYLEE, , INFORMED OF PT'S REQUEST FOR REHAB AT [place], CANCELLED TRANSPORTATION FOR TOE FORMER TODAY. CM NOTIFIED [facility] IN[facility]IENT REH[facility] OF PRESCREEN ORDER AND PT'S REQUEST. RN CM HOUSE NOTIFIED AND ORDER FOR PHYSICAL THERAPY RE EVALUATION OBTAINED. CM WAITING PHYSICAL THERAPY RE EVALUATION RESULTS [facility] INPATIENT REHAB PRESCREENING DETERMINATION FROM [facility] INPATIENT REHAB. ONEIL CARPENTER, CASE MANAGEMENT DCP- Discharge Planning Updated by [id number]: Jennifer Nicholson on 01/21/19 4:[address] Patient Name: RAUL FOX Admission Status: ER Accout number: [id number] Admission Date: 01-21-2019 : 1955 Admission Diagnosis: Attending: AJITH LEO Current LOS: 1 Anticipated DC Date: 01-23-2019 Planned Disposition: Home Primary Insurance: MEDICARE A & B Discharge Planning Comments: CM met with patient to complete initial dc planning assessment. CM educated patient on the CM role and verbal consent given by patient to complete assessment. Patient lives at home independently with his . He goes to hemodialysis in [place] on . At discharge patient plans to return home with his and feels this is a safe discharge. CM discussed availability of home health, rehab services, and medical equipment. Patient denied known discharge needs at this time. CM will continue to follow and will assist as needed with dc plans/needs. Supervisor Communications And Signals: Jennifer Nicholson RN, [facility] DCPIA - Discharge Planning Initial Assessment Updated by [id number]: Jennifer Nicholson on 01/21/19 6:15 pm * Is the patient Alert and Oriented? Yes * PCP Dr. Gupta (not sure of spelling) in [place]. Same office as Dr. Ontiveros * Pharmacy [facility] in [place] * Preadmission Environment Home with Family * ADLs Independent * Equipment CPAP * List name and contact numbers for known caregivers / representatives who currently or will assist patient after discharge: Baylee Posey - [phone] * Verbal permission to speak to the caregivers and representatives has been obtained from the patient. Yes * Community resources currently utilized None * Additional services required to return to the preadmission environment? No * Can the patient safely return to the preadmission environment? Yes * Has this patient been hospitalized within the prior 30 days at any hospital? No Coverage Notice Reviewer: [id number] - Oneil Carpenter Notice Issued Date-Time: 01/29/2019 9:00 Notice Type: IM Discharge Notice Notice Delivered To: Patient Relationship to Patient: Roll Cutting Operator Name: Delivery Method: HAND - Hand Delivered Rosa M Days: Prior Verbal Notification: Recipient Understood Notice: Yes Recipient Signature: Yes Med Rec Note Co-signed by Attending: Coverage Notice Comment: Last DP export: 01/29/19 9:58 a Patient Name: RAUL FOX Page [id number] at 1703 All edits/amendments must be made on the electronic document DICTATION DATE: 01/29/191702 BINGO FLOATER: LUIS A 01/29/191702 RPT#: [id number] DC DATE: STATUS: ADM IN [facility] [address] [place] [address] END OF REPORT
--- NOTE | 2019-01-29 19:30 | NUR ---
RECEIVED REPORT, WILL ASSUME CARE OF PT, PT SITTING ON SIDE OF BED, DENIED ANY NEEDS AT THIS TIME, CALL LIGHT IN REACH, WILL CONTINUE PLAN OF CARE
[2019-01-29 21:03] VITALS: BP 99/67
--- NOTE | 2019-01-29 21:50 | NUR ---
COMPLAINS OF SHOULDER AND BACK PAIN, GAVE TRAMADOL ORDER
[2019-01-30] VITALS: BP 97/68
[2019-01-30 05:49] LABS: ALBUMIN 3.1 g/dL (3.4-5.0); BILIRUBIN - TOTAL 1.75 mg/dL (0.2-1.3); CALCIUM 8.5 mg/dL (8.5-10.1); CARBON DIOXIDE 26.1 mmol/L (21.0-32.0); CREATININE - SERUM 5.8 mg/dL (0.6-1.3); PHOSPHOROUS 8.1 mg/dL (2.5-4.9); POTASSIUM - SERUM 5.1 mmol/L (3.5-5.1); PROTEIN - SERUM 7.7 g/dL (6.4-8.2)
[2019-01-30 06:25] VITALS: BP 99/69
[2019-01-30 09:13] VITALS: BP 97/65
[2019-01-30 09:15] LABS: INR 1.18 (0.85-1.17); PROTIME 14.5 SECONDS (11.6-15.0)
--- NOTE | 2019-01-30 09:31 | NUR ---
PT SITTING UP ON BEDSIDE EATING BREAKFAST. DENIES PAIN AT THIS TIME. A/O X 4. UP AB JASON. VITALS STABLE. MEDS TAKEN WITHOUT DIFFICULTY. L FOREARM IV SL. 2L O2 VIA NC. NORMAL SINUS ON TELE. R CHEST HEMESPLIT, DRSG C/D/I. RAJNI EYES EDEMATOUS. LUNGS CLEAR. HEART RRR. NO FURTHER CONCERNS AT THIS TIME. CL IN REACH. WILL CPOC.
--- NOTE | 2019-01-30 10:22 | NUR ---
PT TOOK MEDS WITHOUT DIFFICULTY. SITTING UP ON SIDE OF BED. DENIES PAIN AT THIS TIME. RECIEVING BREATHING TREATMENT AT THIS TIME. BED LOWERED AND LOCKED. CL IN REACH. WILL CPOC.
[2019-01-30 13:13] VITALS: BP 105/70
--- NOTE | 2019-01-30 13:20 | NUR ---
Nutrition follow-up: Diet: Renal ADA Pt requesting hot sauce with breakfast PO intake ~60% average of meals labs reviewed +BM Wt: 190# RDN following.
--- NOTE | 2019-01-30 13:21 | NUR ---
I have reviewed this patient and I concur with the Shift Assessment completed by the Licensed Practical Nurse today this shift.
--- NOTE | 2019-01-30 15:53 | NUR ---
Rehab Note- Visited with the patient & MARYLIN Nichols. Will accept the patient to [facility] Acute Inpatient Rehab when medically stable & ready for discharge from the acute hospital. Thank you for this referral! Nuris Fonseca RN Clinical Liaison, [facility] Rehab
[2019-01-30 16:41] VITALS: BP 119/65
--- NOTE | 2019-01-30 17:15 | MORECARE ---
CASE MANAGEMENT DISCHARGE SUMMARY PATIENT: RAUL FOX JR UNIT: [id number] ADM DATE: 01/21/19 AGE: 64 : 53 SEX: M ROOM/BED: D.2104 AUTHOR: DOMINGO,DOC PHYSICIAN: REFERRING PHYSICIAN: AJITH LEO MD DATE OF SERVICE: 01/30/19 Discharge Plan Patient Name: RAUL FOX Facility: [facility]:[place] : 1955 Planned Disposition: Home Anticipated Discharge Date: 01/29/19 Discharge Date: Expected LOS: 8 Initial Reviewer: [id number] Initial Review Date: 01/21/2019 Generated: 01/30/19 6:15 pm Comments DCP- Discharge Planning Updated by [id number]: Oneil Carpenter on 01/29/19 9:[address] Patient Name: RAUL FOX Encounter No: [id number] : 1955 Primary Insurance: MEDICARE A & B Anticipated DC Date: 01-29-2019 Planned Disposition: Home DCP follow-up note: CM MET WITH PT IN ROOM TO DISCUSS DISCHARGE NEEDS AND PLANNING. CM DISCUSSED AVAILABILITY OF HOME HEALTH, REHAB SERVICES AND MEDICAL EQUIPMENT. PT DENIES DISCHARGE NEEDS OTHER THAN NEEDING HELP WITH GETTING A RIDE HOME TODAY. IMPORTANT MESSAGE FROM MEDICARE PROVIDED AND EXPLAINED. CM CALLED PT'S SPOUSE, BAYLEE, , INFORMED OF DISCHARGE TODAY; BAYLEE STATES SHE HAS A FRIEND THAT WILL MACHINE FASTENER PT AT ABOUT 2PM TODAY. PT NOTIFIED, DENIES FURHTER NEEDS. Oneil Carpenter, CASE MANAGEMENT Appended by Oneil Carpenter on 01/29/2019 10:55 CDT: CM SPOKE TO LIBERTY FRY AND AFTER CONSULTING WITH DR. ALEMAN, ADVISED CM THAT PT DOES NOT FEEL WELL ENOUGH TO GO HOME AND THE DOCTOR WANTS PT EVALUATED FOR INPATIENT REHAB. CM SPOKE TO PT IN THE DIALYSIS SUITE WHO INFORMED CM THAT HE WOULD LIKE REHAB AT [place] AND DOES FEEL WEAK. CM CALLED PT'S SPOUSE, BAYLEE, , INFORMED OF PT'S REQUEST FOR REHAB AT [place], CANCELLED TRANSPORTATION FOR MACHINE FASTENER TODAY. CM NOTIFIED [facility] INPATIENT REH[facility] OF PRESCREEN ORDER AND PT'S REQUEST. RN CM HOUSE NOTIFIED AND ORDER FOR PHYSICAL THERAPY RE EVALUATION OBTAINED. CM WAITING PHYSICAL THERAPY RE EVALUATION RESULTS [facility] INPATIENT REHAB PRESCREENING DETERMINATION FROM [facility] INPATIENT REHAB. ONEIL CARPENTER, CASE MANAGEMENT DCP- Discharge Planning Updated by [id number]: Jennifer Nicholson on 01/21/19 4:[address] Patient Name: RAUL FOX Admission Status: ER Accout number: [id number] Admission Date: 01-21-2019 : 1955 Admission Diagnosis: Attending: AJITH LEO Current LOS: 1 Anticipated DC Date: 01-23-2019 Planned Disposition: Home Primary Insurance: MEDICARE A & B Discharge Planning Comments: CM met with patient to complete initial dc planning assessment. CM educated patient on the CM role and verbal consent given by patient to complete assessment. Patient lives at home independently with his . He goes to hemodialysis in [place] on . At discharge patient plans to return home with his and feels this is a safe discharge. CM discussed availability of home health, rehab services, and medical equipment. Patient denied known discharge needs at this time. CM will continue to follow and will assist as needed with dc plans/needs. Table Maker: Jennifer Nicholson RN, [facility] DCPIA - Discharge Planning Initial Assessment Updated by [id number]: Jennifer Nicholson on 01/21/19 6:15 pm * Is the patient Alert and Oriented? Yes * PCP Dr. Gupta (not sure of spelling) in [place]. Same office as Dr. Ontiveros * Pharmacy [facility] in [place] * Preadmission Environment Home with Family * ADLs Independent * Equipment CPAP * List name and contact numbers for known caregivers / representatives who currently or will assist patient after discharge: Baylee Posey - [phone] * Verbal permission to speak to the caregivers and representatives has been obtained from the patient. Yes * Community resources currently utilized None * Additional services required to return to the preadmission environment? No * Can the patient safely return to the preadmission environment? Yes * Has this patient been hospitalized within the prior 30 days at any hospital? No Coverage Notice Reviewer: [id number] - Oneil Carpenter Notice Issued Date-Time: 01/29/2019 9:00 Notice Type: IM Discharge Notice Notice Delivered To: Patient Relationship to Patient: Sales Service Executive Name: Delivery Method: HAND - Hand Delivered Rosa M Days: Prior Verbal Notification: Recipient Understood Notice: Yes Recipient Signature: Yes Med Rec Note Co-signed by Attending: Coverage Notice Comment: Last DP export: 01/29/19 4:03 p Patient Name: RAUL FOX Page 14217 at 1715 All edits/amendments must be made on the electronic document DICTATION DATE: 01/30/191713 HEM INSPECTOR: LUIS A 01/30/191713 RPT#: [id number] DC DATE: STATUS: ADM IN [facility] [address] [place] [address] END OF REPORT
--- NOTE | 2019-01-30 17:23 | MORECARE ---
CASE MANAGEMENT DISCHARGE SUMMARY PATIENT: RAUL RAMÍREZ JR UNIT: [id number] ADM DATE: 01/21/19 AGE: 64 : 53 SEX: M ROOM/BED: D.2104 AUTHOR: DOMINGO,DOC PHYSICIAN: REFERRING PHYSICIAN: AJITH LEO MD DATE OF SERVICE: 01/30/19 Discharge Plan Patient Name: RAUL RAMÍREZ [facility] [facility] 1955 Planned Disposition: Home Anticipated Discharge Date: 01/29/19 Discharge Date: Expected LOS: 8 Initial Reviewer: [id number] Initial Review Date: 01/21/2019 Generated: 01/30/19 6:23 pm Comments DCP- Discharge Planning Updated by [id number]: Oneil Carpenter on 01/30/19 4:[address] Patient Name: RAUL RAMÍREZ Encounter No: [id number] : 1955 Primary Insurance: MEDICARE A & B Anticipated DC Date: 01-29-2019 Planned Disposition: INPATIENT REHAB PLANNED EXTERNAL PROVIDER: [facility] INPATIENT REHAB. DCP follow-up note: CM REVIEWED CHART NOTES, [facility] INPATIENT REHAB PLANS TO ACCEPT PT WHEN STABLE FOR DISCHARGE. NOTIFY [facility] INPATIENT REHAB WHEN PT IS READY TO DISCHARGE. INPATIENT REHAB WILL THEN CONTACT MED 2 NURSE WITH ROOM NUMBER WHEN READY TO ACCEPT PT AND NURSE REPORT. UYEN CANO DCP- Discharge Planning Updated by [id number]: Oneil Carpenter on 01/29/19 9:[address] Patient Name: RAUL RAMÍREZ Encounter No: [id number] : 1955 Primary Insurance: MEDICARE A & B Anticipated DC Date: 01-29-2019 Planned Disposition: Home DCP follow-up note: CM MET WITH PT IN ROOM TO DISCUSS DISCHARGE NEEDS AND PLANNING. CM DISCUSSED AVAILABILITY OF HOME HEALTH, REHAB SERVICES AND MEDICAL EQUIPMENT. PT DENIES DISCHARGE NEEDS OTHER THAN NEEDING HELP WITH GETTING A RIDE HOME TODAY. IMPORTANT MESSAGE FROM MEDICARE PROVIDED AND EXPLAINED. CM CALLED PT'S SPOUSE, BAYLEE, , INFORMED OF DISCHARGE TODAY; BAYLEE STATES SHE HAS A FRIEND THAT WILL AMPHIBIAN CREWMEMBER PT AT ABOUT 2PM TODAY. PT NOTIFIED, DENIES FURHTER NEEDS. Oneil Carpenter, CASE MANAGEMENT Appended by Oneil Carpenter on 01/29/2019 10:55 CDT: CM SPOKE TO LIBERTY FRY AND AFTER CONSULTING WITH DR. ALEMAN, ADVISED CM THAT PT DOES NOT FEEL WELL ENOUGH TO GO HOME AND THE DOCTOR WANTS PT EVALUATED FOR INPATIENT REHAB. CM SPOKE TO PT IN THE DIALYSIS SUITE WHO INFORMED CM THAT HE WOULD LIKE REHAB AT [place] AND DOES FEEL WEAK. CM CALLED PT'S SPOUSE, BAYLEE, , INFORMED OF PT'S REQUEST FOR REHAB AT [place], CANCELLED TRANSPORTATION FOR AMPHIBIAN CREWMEMBER TODAY. CM NOTIFIED [facility] INPATIENT REH[facility] OF PRESCREEN ORDER AND PT'S REQUEST. RN HOUSE NOTIFIED AND ORDER FOR PHYSICAL THERAPY RE EVALUATION OBTAINED. CM WAITING PHYSICAL THERAPY RE EVALUATION RESULTS [facility] INPATIENT REHAB PRESCREENING DETERMINATION FROM [facility] INPATIENT REHAB. ONEIL CARPENTER, CASE MANAGEMENT DCP- Discharge Planning Updated by [id number]: Jennifer Nicholson on 01/21/19 4:[address] Patient Name: RAUL RAMÍREZ Admission Status: ER Accout number: [id number] Admission Date: 01-21-2019 : 1955 Admission Diagnosis: Attending: AJITH LEO Current LOS: 1 Anticipated DC Date: 01-23-2019 Planned Disposition: Home Primary Insurance: MEDICARE A & B Discharge Planning Comments: CM met with patient to complete initial dc planning assessment. CM educated patient on the CM role and verbal consent given by patient to complete assessment. Patient lives at home independently with his . He goes to hemodialysis in [place] . At discharge patient plans to return home with his and feels this is a safe discharge. CM discussed availability of home health, rehab services, and medical equipment. Patient denied known discharge needs at this time. CM will continue to follow and will assist as needed with dc plans/needs. Tugboat Mate: Jennifer Nicholson RN, [facility] DCPIA - Discharge Planning Initial Assessment Updated by [id number]: Jennifer Nicholson on 01/21/19 6:15 pm * Is the patient Alert and Oriented? Yes * PCP Dr. Gupta (not sure of spelling) in [place]. Same office as Dr. Ontiveros * Pharmacy [facility] in [place] * Preadmission Environment Home with Family * ADLs Independent * Equipment CPAP * List name and contact numbers for known caregivers / representatives who currently or will assist patient after discharge: Baylee Ramírez - - [phone] * Verbal permission to speak to the caregivers and representatives has been obtained from the patient. Yes * Community resources currently utilized None * Additional services required to return to the preadmission environment? No * Can the patient safely return to the preadmission environment? Yes * Has this patient been hospitalized within the prior 30 days at any hospital? No Coverage Notice Reviewer: [id number] Kalpesh Carpenter Notice Issued Date-Time: 01/29/2019 9:00 Notice Type: IM Discharge Notice Notice Delivered To: Patient Relationship to Patient: Fleet Dispatch Manager Name: Delivery Method: HAND - Hand Delivered Rosa M Days: Prior Verbal Notification: Recipient Understood Notice: Yes Recipient Signature: Yes Med Rec Note Co-signed by Attending: Coverage Notice Comment: Last DP export: 01/30/19 4:15 p Patient Name: RAUL RAMÍREZ Page 51383 at 1723 All edits/amendments must be made on the electronic document DICTATION DATE: 01/30/191722 ENTRY OPERATOR: LUIS A 01/30/191722 RPT#: [id number] DC DATE: STATUS: ADM IN [facility] [address] [place] [address] END OF REPORT
--- NOTE | 2019-01-30 19:35 | NUR ---
INTRODUCED SELF TO PATIENT, PATIENT RESTING QUIETLY WATCHING TV. RESP EVEN AND UNLABORED. NO S/SX OF DISCOMFORT OR PAIN AT THIS TIME.
[2019-01-30 21:13] VITALS: BP 101/67
[2019-01-31 01:54] VITALS: BP 99/67
--- NOTE | 2019-01-31 02:49 | NUR ---
PATIENT SITTING UPRIGHT ON SIDE OF THE BED, ASKED PT IF HE HAD ANY NEEDS, "NO I'M JUST COMFORTABLE THIS WAY." BED IN LOWEST POSITION, CALL LIGHT IN REACH.
[2019-01-31 04:37] LABS: BASOPHILS 0.4 % (0-2); HEMATOCRIT 37.9 % (42.0-54.0); HEMOGLOBIN 12.6 g/dL (13.5-17.5); IMMATURE GRANULOCYTES 0.5 % (0-5); LYMPHOCYTES 13.4 % (15-50); MCH 32.1 pg (26.0-34.0); MCHC 33.2 g/dL (31.0-37.0); MCV 96.7 fL (80.0-100.0); MEAN PLATELET VOLUME 10.5 fL (7.4-10.4); MONOCYTES 12.9 % (2-11); NEUTROPHILS 68.8 % (40-80); PLATELET COUNT 150 10x3/uL (130-400); RBC 3.92 10x6/uL (4.20-6.10); RDW 18.4 % (11.5-14.5); WBC 8.2 10x3/uL (4.8-10.8)
[2019-01-31 05:13] VITALS: BP 107/73
[2019-01-31 05:16] LABS: ALBUMIN 3.1 g/dL (3.4-5.0); BILIRUBIN - TOTAL 1.46 mg/dL (0.2-1.3); CALCIUM 8.6 mg/dL (8.5-10.1); CARBON DIOXIDE 24.7 mmol/L (21.0-32.0); CREATININE - SERUM 6.4 mg/dL (0.6-1.3); PHOSPHOROUS 8.5 mg/dL (2.5-4.9); POTASSIUM - SERUM 5.1 mmol/L (3.5-5.1)
[2019-01-31 05:24] LABS: ANION GAP 19.4 mmol/L (8-16)
--- NOTE | 2019-01-31 07:45 | NUR ---
INITAL ROUNDING ON THE PATIENT, CAREGIVERS INTRODUCED, WHITE BOARD UPDATED. PATIENT IS SITTING ON THE SIDE OF THE BED WAITING FOR HIS BREAKFAST. INSTRUCTED/REVIEWED THE FLUID RESTRICTION OF 1000 ML/DAY WITH THE PATIENT. O2 VIA NC IN PLACE. PATIENT DENIES PAIN, NO SOB/DISTRESS NOTED.
[2019-01-31 08:18] VITALS: BP 96/70
--- NOTE | 2019-01-31 11:45 | NUR ---
RECVD POST DIALYSIS REPORT FROM NABEEL, PATIENT TOLERATED DIALYSIS WITH THE EXCEPTION OF CHEST LIKE CRAMPS. 2.5 L REMOVED.
--- NOTE | 2019-01-31 13:06 | MORECARE ---
CASE MANAGEMENT DISCHARGE SUMMARY PATIENT: RAUL RAMÍREZ JR UNIT: [id number] ADM DATE: 01/21/19 AGE: 64 : 53 SEX: M ROOM/BED: D.2104 AUTHOR: DOMINGODOC PHYSICIAN: REFERRING PHYSICIAN: AJITH LEO MD DATE OF SERVICE: 01/31/19 Discharge Plan Patient Name: RAUL RAMÍREZ [facility] [facility] 1955 Planned Disposition: Inpatient Rehab Anticipated Discharge Date: 01/31/19 Discharge Date: Expected LOS: 10 Initial Reviewer: [email or web address] Initial Review Date: 01/21/2019 Generated: 01/31/19 2:06 pm Comments DCP- Discharge Planning Updated by [id number]: Oneil Carpenter on 01/30/19 4:[address] Patient Name: RAUL RAMÍREZ Encounter No: [id number] : 1955 Primary Insurance: MEDICARE A & B Anticipated DC Date: 01-29-2019 Planned Disposition: INPATIENT REHAB PLANNED EXTERNAL PROVIDER: [facility] INPATIENT REHAB. DCP follow-up note: CM REVIEWED CHART NOTES, [facility] INPATIENT REHAB PLANS TO ACCEPT PT WHEN STABLE FOR DISCHARGE. NOTIFY [facility] INPATIENT REHAB WHEN PT IS READY TO DISCHARGE. INPATIENT REHAB WILL THEN CONTACT MED 2 NURSE WITH ROOM NUMBER WHEN READY TO ACCEPT PT AND NURSE REPORT. UYEN CANO DCP- Discharge Planning Updated by [id number]: Oneil Carpenter on 01/29/19 9:[address] Patient Name: RAUL RAMÍREZ Encounter No: [id number] : 1955 Primary Insurance: MEDICARE A & B Anticipated DC Date: 01-29-2019 Planned Disposition: Home DCP follow-up note: CM MET WITH PT IN ROOM TO DISCUSS DISCHARGE NEEDS AND PLANNING. CM DISCUSSED AVAILABILITY OF HOME HEALTH, REHAB SERVICES AND MEDICAL EQUIPMENT. PT DENIES DISCHARGE NEEDS OTHER THAN NEEDING HELP WITH GETTING A RIDE HOME TODAY. IMPORTANT MESSAGE FROM MEDICARE PROVIDED AND EXPLAINED. CM CALLED PT'S SPOUSE, BAYLEE, , INFORMED OF DISCHARGE TODAY; BAYLEE STATES SHE HAS A FRIEND THAT WILL WEB USER EXPERIENCE STRATEGIST PT AT ABOUT 2PM TODAY. PT NOTIFIED, DENIES FURHTER NEEDS. Oneil Carpenter, CASE MANAGEMENT Appended by Oneil Carpenter on 01/29/2019 10:55 CDT: CM SPOKE TO LIBERTY FRY AND AFTER CONSULTING WITH DR. ALEMAN, ADVISED CM THAT PT DOES NOT FEEL WELL ENOUGH TO GO HOME AND THE DOCTOR WANTS PT EVALUATED FOR INPATIENT REHAB. CM SPOKE TO PT IN THE DIALYSIS SUITE WHO INFORMED CM THAT HE WOULD LIKE REHAB AT [place] AND DOES FEEL WEAK. CM CALLED PT'S SPOUSE, BAYLEE, , INFORMED OF PT'S REQUEST FOR REHAB AT [place], CANCELLED TRANSPORTATION FOR WEB USER EXPERIENCE STRATEGIST TODAY. CM NOTIFIED [facility] INPATIENT REH[facility] OF PRESCREEN ORDER AND PT'S REQUEST. RN HOUSE NOTIFIED AND ORDER FOR PHYSICAL THERAPY RE EVALUATION OBTAINED. CM WAITING PHYSICAL THERAPY RE EVALUATION RESULTS WELL INPATIENT REHAB PRESCREENING DETERMINATION FROM [facility] INPATIENT REHAB. ONEIL CARPENTER, CASE MANAGEMENT DCP- Discharge Planning Updated by [id number]: Jennifer Nicholson on 01/21/19 4:[address] Patient Name: RAUL RAMÍREZ Admission Status: ER Accout number: [id number] Admission Date: 01-21-2019 : 1955 Admission Diagnosis: Attending: AJITH LOE Current LOS: 1 Anticipated DC Date: 01-23-2019 Planned Disposition: Home Primary Insurance: MEDICARE A & B Discharge Planning Comments: CM met with patient to complete initial dc planning assessment. CM educated patient on the CM role and verbal consent given by patient to complete assessment. Patient lives at home independently with his . He goes to hemodialysis in [place] . At discharge patient plans to return home with his and feels this is a safe discharge. CM discussed availability of home health, rehab services, and medical equipment. Patient denied known discharge needs at this time. CM will continue to follow and will assist as needed with dc plans/needs. Platen Drier Operator: Jennifer Nicholson RN, [facility] DCPIA - Discharge Planning Initial Assessment Updated by [email or web address]: Jennifer Nicholson on 01/21/19 6:15 pm * Is the patient Alert and Oriented? Yes * PCP Dr. Gupta (not sure of spelling) in [place]. Same office as Dr. Ontiveros * Pharmacy [facility] in [place] * Preadmission Environment Home with Family * ADLs Independent * Equipment CPAP * List name and contact numbers for known caregivers / representatives who currently or will assist patient after discharge: Baylee Ramírez - - [phone] * Verbal permission to speak to the caregivers and representatives has been obtained from the patient. Yes * Community resources currently utilized None * Additional services required to return to the preadmission environment? No * Can the patient safely return to the preadmission environment? Yes * Has this patient been hospitalized within the prior 30 days at any hospital? No Coverage Notice Reviewer: [email or web address] Kalpesh Carpenter Notice Issued Date-Time: 01/29/2019 9:00 Notice Type: IM Discharge Notice Notice Delivered To: Patient Relationship to Patient: Senior Java J2Ee Developer Name: Delivery Method: HAND - Hand Delivered Rosa M Days: Prior Verbal Notification: Recipient Understood Notice: Yes Recipient Signature: Yes Med Rec Note Co-signed by Attending: Coverage Notice Comment: Last DP export: 01/30/19 4:23 p Patient Name: RAUL RAMÍREZ Page 72730 at 1306 All edits/amendments must be made on the electronic document DICTATION DATE: 01/31/19 1305 DIRECTOR PHYSICAL: LUIS A 01/31/19 1305 RPT#: [id number] DC DATE: STATUS: ADM IN [facility] [address] [place] [address] END OF REPORT
--- NOTE | 2019-01-31 13:15 | MORECARE ---
CASE MANAGEMENT DISCHARGE SUMMARY PATIENT: RAUL RAMÍREZ JR UNIT: [id number] ADM DATE: 01/21/19 AGE: 64 : 54 SEX: M ROOM/BED: D.2104 AUTHOR: [address]RE[address] PHYSICIAN: REFERRING PHYSICIAN: AJITH LEO MD DATE OF SERVICE: 01/31/19 Discharge Plan Patient Name: RAUL RAMÍREZ [facility] [facility] 1955 Planned Disposition: Inpatient Rehab Anticipated Discharge Date: 01/31/19 Discharge Date: Expected LOS: 10 Initial Reviewer: [email or web address] Initial Review Date: 01/21/2019 Generated: 01/31/19 2:15 pm Comments DCP- Discharge Planning Updated by [id number]: Oneil Carpenter on 01/31/19 12:[address] Patient Name: RAUL RAMÍREZ Encounter No: [id number] : 1955 Primary Insurance: MEDICARE A & B Anticipated DC Date: 01-31-2019 Planned Disposition: Inpatient Rehab External Planned Provider: [facility] DCP follow-up note: CM REVIEWED CHART NOTES, [facility] PLANS TO ACCEPT PT WHEN STABLE FOR DISCHARGE, DR. THAO NOTED YESTERDAY NO CLEAR DISCHARGE PLAN. CM CALLED LIBERTY LUNA, NOTIFIED OF ACCEPTANCE BY [facility], LIBERTY INFORMED CM THAT PT WILL DISCHARGE TODAY TO REHAB. CM NOTIFIED NORBERT OF INPATIENT REHAB. PT NOTIFIED AND IN AGREEMENT WITH DISCHARGE TO INPATIENT REHAB TODAY. INPATIENT REHAB WILL CONTACT MED 2 NURSE WITH ROOM NUMBER WHEN READY TO ACCEPT PT AND NURSE REPORT. ONEIL CARPENTER, CASE MANAGEMENT DCP- Discharge Planning Updated by [id number]: Oneil Carpenter on 01/30/19 4:[address] Patient Name: RAUL RAMÍREZ Encounter No: [id number] : 1955 Primary Insurance: MEDICARE A & B Anticipated DC Date: 01-29-2019 Planned Disposition: INPATIENT REHAB PLANNED EXTERNAL PROVIDER: [facility]. DCP follow-up note: CM REVIEWED CHART NOTES, [facility] PLANS TO ACCEPT PT WHEN STABLE FOR DISCHARGE. NOTIFY [facility] WHEN PT IS READY TO DISCHARGE. INPATIENT REHAB WILL THEN CONTACT MED 2 NURSE WITH ROOM NUMBER WHEN READY TO ACCEPT PT AND NURSE REPORT. ONEIL CARPENTER CASE MANAGEMENT DCP- Discharge Planning Updated by [id number]: Oneil Carpenter on 01/29/19 9:[address] Patient Name: RAUL RAMÍREZ Encounter No: [id number] : 1955 Primary Insurance: MEDICARE A & B Anticipated DC Date: 01-29-2019 Planned Disposition: Home DCP follow-up note: CM MET WITH PT IN ROOM TO DISCUSS DISCHARGE NEEDS AND PLANNING. CM DISCUSSED AVAILABILITY OF HOME HEALTH, REHAB SERVICES AND MEDICAL EQUIPMENT. PT DENIES DISCHARGE NEEDS OTHER THAN NEEDING HELP WITH GETTING A RIDE HOME TODAY. IMPORTANT MESSAGE FROM MEDICARE PROVIDED AND EXPLAINED. CM CALLED PT'S SPOUSE, BAYLEE, , INFORMED OF DISCHARGE TODAY; BAYLEE STATES SHE HAS A FRIEND THAT WILL BENCH ASSEMBLER PT AT ABOUT 2PM TODAY. PT NOTIFIED, DENIES FURHTER NEEDS. Oneil Carpenter, CASE MANAGEMENT Appended by Oneil Carpenter on 01/29/2019 10:55 CDT: CM SPOKE TO [facility] FRY AND AFTER CONSULTING WITH DR. ALEMAN, ADVISED CM THAT PT DOES NOT FEEL WELL ENOUGH TO GO HOME AND THE DOCTOR WANTS PT EVALUATED FOR INPATIENT REHAB. CM SPOKE TO PT IN THE DIALYSIS SUITE WHO INFORMED CM THAT HE WOULD LIKE REHAB AT [facility] AND DOES FEEL WEAK. CM CALLED PT'S SPOUSE, BAYLEE, , INFORMED OF PT'S REQUEST FOR REHAB AT [facility], CANCELLED TRANSPORTATION FOR BENCH ASSEMBLER TODAY. CM NOTIFIED FABRICE OF [facility] OF PRESCREEN ORDER AND PT'S REQUEST. RN CM HOUSE NOTIFIED AND ORDER FOR PHYSICAL THERAPY RE EVALUATION OBTAINED. CM WAITING PHYSICAL THERAPY RE EVALUATION RESULTS WELL INPATIENT REHAB PRESCREENING DETERMINATION FROM [facility]. ONEIL CARPENTER CASE ADELAIDA DCP- Discharge Planning Updated by [id number]: Jennifer Nicholson on 01/21/19 4:[address] Patient Name: RAUL RAMÍREZ Admission Status: ER Accout number: [id number] Admission Date: 01-21-2019 : 1955 Admission Diagnosis: Attending: AJITH LEO Current LOS: 1 Anticipated DC Date: 01-23-2019 Planned Disposition: Home Primary Insurance: MEDICARE A & B Discharge Planning Comments: CM met with patient to complete initial dc planning assessment. CM educated patient on the CM role and verbal consent given by patient to complete assessment. Patient lives at home independently with his . He goes to hemodialysis in [place] on . At discharge patient plans to return home with his and feels this is a safe discharge. CM discussed availability of home health, rehab services, and medical equipment. Patient denied known discharge needs at this time. CM will continue to follow and will assist as needed with dc plans/needs. Public Housing Manager: Jennifer Nicholson RN, [facility] DCPIA - Discharge Planning Initial Assessment Updated by [id number]: Jennifer Nicholson on 01/21/19 6:15 pm * Is the patient Alert and Oriented? Yes * PCP Dr. Gupta (not sure of spelling) in [place]. Same office as Dr. Ontiveros * Pharmacy [facility] in [place] * Preadmission Environment Home with Family * ADLs Independent * Equipment CPAP * List name and contact numbers for known caregivers / representatives who currently or will assist patient after discharge: Baylee Ramírez - - [phone] * Verbal permission to speak to the caregivers and representatives has been obtained from the patient. Yes * Community resources currently utilized None * Additional services required to return to the preadmission environment? No * Can the patient safely return to the preadmission environment? Yes * Has this patient been hospitalized within the prior 30 days at any hospital? No Coverage Notice Reviewer: [id number] Kalpesh Carpenter Notice Issued Date-Time: 01/29/2019 9:00 Notice Type: IM Discharge Notice Notice Delivered To: Patient Relationship to Patient: Barbering Instructor Name: Delivery Method: HAND - Hand Delivered Rosa M Days: Prior Verbal Notification: Recipient Understood Notice: Yes Recipient Signature: Yes Med Rec Note Co-signed by Attending: Coverage Notice Comment: Last DP export: 01/31/19 12:06 p Patient Name: RAUL RAMÍREZ Page [id number] at 1315 All edits/amendments must be made on the electronic document DICTATION DATE: 01/31/19 1314 MEDICAL SUPPORT SPECIALIST: LUIS A 01/31/19 1314 RPT#: [id number] DC DATE: STATUS: ADM IN [facility] [address] [place] [address] END OF REPORT
--- NOTE | 2019-01-31 14:22 | NUR ---
CALLED REPORT TO AJITH IN REHAB. SHE IS READY FOR THE PATIENT
--- NOTE | 2019-02-01 07:17 | DS ---
PATIENT:RAUL FOX JR :53 MEDICAL RECORD: [id number] DISCHARGE SUMMARY ADMISSION DATE: 01/21/19 DISCHARGE DATE: 01/31/19 HISTORY OF PRESENT ILLNESS: Mr. Fox is a 64-year-old white male with end-stage renal disease on chronic dialysis, has a known cardiomyopathy and chronic hypotension, seen on a regular basis by me at [facility]. He was admitted following a syncopal episode in [facility] on Tuesday with some shortness of breath. HOSPITAL COURSE: The patient's blood pressure ran in the 100 systolic range, which is what it is chronically. He had telemetry done that was stable with a paced rhythm. He had a carotid Doppler done that was negative. He had a possible infiltrate on chest x-ray, was covered with antibiotic therapy. His last chest x-ray was clear and at this time he will be transferred to rehabilitation. DISCHARGE DIAGNOSES: 1. Syncopal episode, probably due to chronic hypotension. 2. Shortness of breath, probably related to pneumonia and chronic volume overload. 3. Chronic cardiomyopathy. 4. End-stage renal disease. 5. Chronic anemia. PLAN: The patient will be discharged today. He will be transferred to Rehab. He will continue his current meds, diet and thrice weekly dialysis. We will continue to follow him there in rehabilitation. TRANSINT:[id number] Voice Confirmation ID: [id number] DOCUMENT ID: [id number] DONG THAO MD at 0717 CC: [id number] DICTATION DATE: 01/31/19 0731 TOOL AND DIE MANAGER: 01/31/19 1006 DIS IN 01/31/19 [id number] [place] [address]
== END 2019-01-31 16:07 | DRG 291 ==
LOC: D.ER 14:46 → D.EDHOLD 15:55 → D.M2 15:55
PROVIDERS: Family Medicine; Internal Medicine Nephrology; ADMIT Internal Medicine Nephrology; ATTEND Internal Medicine Nephrology
DX: I13.2 Hypertensive heart and chronic kidney disease with heart failure and with stage 5 chronic kidney disease, or end stage renal disease (principal); J18.1 Lobar pneumonia, unspecified organism; N18.6 End stage renal disease; E87.1 Hypo-osmolality and hyponatremia; I42.9 Cardiomyopathy, unspecified; I95.89 Other hypotension; R55 Syncope and collapse; I25.10 Atherosclerotic heart disease of native coronary artery without angina pectoris; Z99.2 Dependence on renal dialysis; E11.22 Type 2 diabetes mellitus with diabetic chronic kidney disease; K21.9 Gastro-esophageal reflux disease without esophagitis; E87.5 Hyperkalemia; D64.9 Anemia, unspecified; I50.9 Heart failure, unspecified; Z95.0 Presence of cardiac pacemaker

== ENCOUNTER 2019-01-31 15:36 | Inpatient (IN) | payer MEDICARE, OTHER ==
[~2019-01-31] VITALS: Ht 172.7 cm; Wt 84.7 kg
--- NOTE | 2019-01-31 15:30 | NUR ---
REC'D PT VIA W/C. PT C/O CHEST PAIN. PAIN LEVEL 7/10 AT THIS TIME. V/S B/P 105/76, P- 71, R-19, O2 SAT 91% OXYGEN VIA N/C AT 2LPM PER ORDER. EKG AND CE'S ORDERED. N/C CHANGED PER THIS NURSE D/T DRIED BLOOD BLOCKING AIR FLOW. NEW N/C APPLIED O2 SAT RECHECKED. PT O2 SAT IN LOW 90'S AT THIS TIME. SIDE RAILS UP X 2. CALL LIGHT WITHIN REACH. HOB AT 45. WILL CONTINUE TO MONITOR.
--- NOTE | 2019-01-31 16:03 | NUR ---
LAB PRESENT AT THIS TIME. EKG ORDERED. WILL CONTINUE TO MONITOR.
[2019-01-31 17:02] LABS: CKMB 3.9 U/L (0.0-3.6); CREATINE KINASE 30 UL (21-232)
--- NOTE | 2019-01-31 17:10 | NUR ---
LAB CALLED REPORTED TROPONIN LEVEL OF 0.187. CHARGE NURSE NOTIFIED.
[2019-01-31 17:11] LABS: TROPONIN-I 0.187 ng/mL (0.000-0.060)
--- NOTE | 2019-01-31 17:39 | NUR ---
STATES STILL HAVING CP A 6 ON PAIN SCALE.ORDERS OBTAINED FROM .NITROGLYCERIN 0.4MG SL GIVEN.
--- NOTE | 2019-01-31 17:44 | NUR ---
STATES CP DOWN TO A 4 ; NITROGLYCERIN 0.4MG SL. REPEATED .
[2019-01-31 17:45] VITALS: BP 105/76
--- NOTE | 2019-01-31 17:54 | NUR ---
STATES PAIN A 0 NOW.CP GONE.
[2019-01-31 19:01] LABS: INR 1.3 (0.85-1.17); PROTIME 15.6 SECONDS (11.6-15.0)
--- NOTE | 2019-01-31 19:46 | NUR ---
PT SITTING UP ON SIDE OF BED. PT COMPLAINING OF NAUSEA BUT NO CHEST PAIN. NO ORDER FOR ZOFRAN. OFFERED CRACKERS AND WATER. PT DENIED THE CRACKERS BUT HAD WATER BEDSIDE. RESP EVEN AND UNLABORED. O2 ON VIA NC AT 2L. WILL CONTINUE TO MONITOR.
[2019-01-31 21:19] VITALS: BP 108/71
[2019-01-31 22:56] LABS: CKMB 3.2 U/L (0.0-3.6); CREATINE KINASE 27 UL (21-232)
[2019-01-31 22:57] LABS: TROPONIN-I 0.155 ng/mL (0.000-0.060)
[2019-02-01 00:25] VITALS: BP 109/73
--- NOTE | 2019-02-01 00:58 | NUR ---
PT LYING IN BED. CALL LIGHT IN REACH. PT DENIES NEEDS WILL CONTINUE TO MONITOR.
[2019-02-01 04:53] LABS: BASOPHILS 0.2 % (0-2); EOSINOPHILS 0.5 % (0-7); HEMATOCRIT 38.7 % (42.0-54.0); IMMATURE GRANULOCYTES 0.4 % (0-5); LYMPHOCYTES 4.9 % (15-50); MCH 32.5 pg (26.0-34.0); MCHC 33.6 g/dL (31.0-37.0); MCV 96.8 fL (80.0-100.0); MEAN PLATELET VOLUME 10.1 fL (7.4-10.4); MONOCYTES 10.8 % (2-11); NEUTROPHILS 83.2 % (40-80); PLATELET COUNT 144 10x3/uL (130-400); RDW 18.1 % (11.5-14.5)
[2019-02-01 05:01] LABS: WBC 12.5 10x3/uL (4.8-10.8)
[2019-02-01 05:02] LABS: INR 1.71 (0.85-1.17); PROTIME 19.4 SECONDS (11.6-15.0)
[2019-02-01 05:26] LABS: CALC OSMOLALITY 262 mosm/kg (275-300); CALCIUM 8.6 mg/dL (8.5-10.1); CARBON DIOXIDE 22.6 mmol/L (21.0-32.0); CHLORIDE - SERUM 88 mmol/L (98-107); CKMB 3.2 U/L (0.0-3.6); CREATINE KINASE 33 UL (21-232); CREATININE - SERUM 4.9 mg/dL (0.6-1.3); GLUCOSE 81 mg/dL (74-106); POTASSIUM - SERUM 4.9 mmol/L (3.5-5.1); SODIUM 125 mmol/L (136-145); UREA NITROGEN 46 mg/dL (7-18); eGFR NON AFRICAN AMERICAN 13 mL/min (90-120)
[2019-02-01 05:27] LABS: TROPONIN-I 0.161 ng/mL (0.000-0.060)
--- NOTE | 2019-02-01 05:32 | NUR ---
PT RESTING QUIETLY CALL LIGHT IN REACH. NO SIGNS OF DISTRESS OR PAIN.
--- NOTE | 2019-02-01 08:00 | NUR ---
PT RESTING IN BED WITH EYES OPEN CALL LIGHT IN REACH NO PROBLEMS
--- NOTE | 2019-02-01 08:15 | NUR ---
PT RESTING IN BED WITH EYES OPEN CALL LIGHT IN REACH NO PROBLEMS WILL MONITER
[2019-02-01 11:52] VITALS: BP 102/62
[2019-02-01 14:56] VITALS: Ht 172.7 cm; Wt 84.7 kg
[2019-02-01 18:12] VITALS: BP 100/62
--- NOTE | 2019-02-01 19:40 | NUR ---
PT LYING IN BED WATCHING TV RESTING QUIETLY. CALL LIGHT IN REACH. NO SIGNS OF DISTRESS OR PAIN AT THIS TIME. BED IN LOW. SIDE RAILS X2. RESP EVEN AND UNLABORED. PT WEARS O2 AT 2L VIA NC. WILL CONTINUE TO MONITOR.
[2019-02-01 20:57] VITALS: BP 89/55
--- NOTE | 2019-02-02 00:10 | NUR ---
PT SITTING UP ON SIDE OF BED. CALL LIGHT IN REACH. PT DENIES NEEDS OR PAIN. WILL CONTINUE TO MONITOR. BED ALARM ON.
[2019-02-02 00:58] VITALS: BP 98/63
--- NOTE | 2019-02-02 04:22 | NUR ---
PT ASLEEP NO NEEDS NOTED FLUIDS AND CALL LIGHT WITHIN REACH
--- NOTE | 2019-02-02 04:50 | NUR ---
PT RESTING QUIETLY. EYES CLOSED. PT SITTING UP IN BED. CALL LIGHT IN REACH. NO SIGNS OF DISTRESS OR PAIN
[2019-02-02 05:54] VITALS: BP 99/66
[2019-02-02 06:18] LABS: BASOPHILS 0.3 % (0-2); EOSINOPHILS 2.4 % (0-7); HEMATOCRIT 38.4 % (42.0-54.0); HEMOGLOBIN 12.8 g/dL (13.5-17.5); IMMATURE GRANULOCYTES 0.5 % (0-5); LYMPHOCYTES 9.2 % (15-50); MCH 32.2 pg (26.0-34.0); MCHC 33.3 g/dL (31.0-37.0); MCV 96.7 fL (80.0-100.0); MEAN PLATELET VOLUME 10.1 fL (7.4-10.4); MONOCYTES 13.2 % (2-11); NEUTROPHILS 74.4 % (40-80); PLATELET COUNT 150 10x3/uL (130-400); RBC 3.97 10x6/uL (4.20-6.10); RDW 18.6 % (11.5-14.5); WBC 10.1 10x3/uL (4.8-10.8)
[2019-02-02 06:30] LABS: ANION GAP 20.7 mmol/L (8-16); CALCIUM 9.1 mg/dL (8.5-10.1); CARBON DIOXIDE 20.5 mmol/L (21.0-32.0); CREATININE - SERUM 5.9 mg/dL (0.6-1.3); POTASSIUM - SERUM 5.2 mmol/L (3.5-5.1)
[2019-02-02 06:47] LABS: INR 2.23 (0.85-1.17)
--- NOTE | 2019-02-02 08:00 | NUR ---
PATIENT IS ALERT/ORIENT. CALL LIGHT WITHIN REACH. VOICES NO NEEDS AT THIS TIME. WILL CONTINUE WITH PLAN OF CARE
--- NOTE | 2019-02-02 10:00 | NUR ---
PATIENT IN REHAB ROOM. WORKING WITH PHYSICAL THERAPIST. DENIES ANY PAIN/DISC AT THIS TIME.
[2019-02-02 12:00] VITALS: BP 94/64
--- NOTE | 2019-02-02 13:45 | NUR ---
PATIENT TAKEN DOWN TO DIALYSIS CLINIC FOR TREATMENT BY THIS NURSE
--- NOTE | 2019-02-02 17:33 | NUR ---
DIALYSIS CLINIC CALLED. PATIENT DONE WITH TX. THIS NURSE BROUGHT PATIENT BACK TO UNIT. SITTING UP FOR SUPPER
--- NOTE | 2019-02-02 17:52 | NUR ---
Dialysis Coordinator: AMANDA LOVE 1st shift. BMM DC
[2019-02-02 18:20] VITALS: BP 93/63
--- NOTE | 2019-02-02 19:14 | NUR ---
PATIENT IS RESTING IN HIS BED. BED IS DOWN LOW WITH SIDE RAILS UP X2. CALL LIGHT IS IN REACH.
[2019-02-02 22:57] VITALS: BP 100/68
--- NOTE | 2019-02-02 23:42 | NUR ---
PT IS RESTING QUIETLY IN BED WITH EYES CLOSED. RESPS ARE EVEN AND UNLABORED. NO ACUTE DISTRESS NOTED.
--- NOTE | 2019-02-03 03:33 | NUR ---
PT UP TO VOID. UA SENT TO LAB.
[2019-02-03 03:41] LABS: APPEARANCE TURBID (CLEAR); COLOR STRAW (YELLOW); SPECIFIC GRAVITY 1.025 (1.005-1.020)
[2019-02-03 03:42] LABS: BILIRUBIN NEGATIVE (NEGATIVE); GLUCOSE NEGATIVE (NEGATIVE); KETONE NEGATIVE (NEGATIVE); NITRITE NEGATIVE (NEGATIVE); PROTEIN 2+ mg/dL (NEGATIVE); UROBILINOGEN NORMAL (NORMAL)
[2019-02-03 03:46] LABS: BACTERIA MODERATE /hpf (NONE SEEN); EPITHELIAL CELLS RARE /hpf (0-5); RED CELLS - URINE 0-5 /hpf (0-5); WHITE CELLS - URINE >50 /hpf (0-5)
[2019-02-03 06:11] VITALS: BP 94/64
[2019-02-03 06:57] LABS: CALCIUM 8.6 mg/dL (8.5-10.1); CREATININE - SERUM 4.8 mg/dL (0.6-1.3); PHOSPHOROUS 5.9 mg/dL (2.5-4.9)
[2019-02-03 06:58] LABS: ANION GAP 15.1 mmol/L (8-16); POTASSIUM - SERUM 4.1 mmol/L (3.5-5.1)
[2019-02-03 07:09] LABS: INR 2.15 (0.85-1.17); PROTIME 23.3 SECONDS (11.6-15.0)
[2019-02-03 08:19] VITALS: BP 113/62
--- NOTE | 2019-02-03 08:55 | NUR ---
PT RESTING IN BED WITH EYES OPEN CALL LIGHT IN REACH WILL MONITER
--- NOTE | 2019-02-03 10:13 | NUR ---
THE PATIENT IS IN THE THERAPY ROOM. HE IS WITH STAFF. HE APPEARS COMFORTABLE AND HAS NO QUESTIONS OR COCNERNS AT THIS TIME.
[2019-02-03 12:45] VITALS: BP 105/76
[2019-02-03 18:34] VITALS: BP 113/65
--- NOTE | 2019-02-03 18:40 | NUR ---
PT RESTING IN BED WITH EYES OPEN CALL LIGHT IN REACH NO PROBLEMS WILL MONITER
--- NOTE | 2019-02-03 19:30 | NUR ---
PT RESTING IN BED WITH EYES OPEN. ALERT AND ORIENTED X 3. DENIES ACUTE DISCOMFORT AT THIS TIME. NO ACUTE DISTRESS NOTED. RIGHT CHEST HEMISPLIT CATH NOTED. VSS. O2 IS ON LPM PER NC. NO SOB NOTED. SR'S ARE UP X 2 IN BED. CALL LIGHT AND BEDSIDE TABLE ARE WITHIN EASY REACH.
--- NOTE | 2019-02-03 21:10 | NUR ---
CALLED DR ODOM WITH URINALYSIS RESULTS. NO ORDERS NOTED. COMPLIANCE REVIEW OFFICER NOTIFIED OF NEED FOR NEDICATION OVERRIDE.
--- NOTE | 2019-02-03 22:38 | NUR ---
PT RESTING IN BED WITH EYES OPEN. MEDICATED WITH FIRST DOSE OF ABX PER ORDERS.
--- NOTE | 2019-02-04 00:01 | NUR ---
RESTING IN BED WITH EYES CLOSED. NO DISTRESS NOTED. CALL LIGHT IN REACH.
[2019-02-04 00:12] VITALS: BP 112/57
--- NOTE | 2019-02-04 04:38 | NUR ---
PT RESTING QUIETLY IN BED WITH EYES CLOSED RESPS ARE EVEN AND UNLABORED. NO ACUTE DISTRESS NOTED.
[2019-02-04 06:01] VITALS: BP 103/70
[2019-02-04 06:48] LABS: INR 2.07 (0.85-1.17); PROTIME 22.7 SECONDS (11.6-15.0)
--- NOTE | 2019-02-04 07:34 | NUR ---
PT SITTING UP ON SIDE OF BED EATING BREAKFAST. BED IN LOW. SIDE RAILS X2. CALL LIGHT IN REACH. BED ALARM ON. PT DENIES NEEDS OR PAIN AT THIS TIME. RESP EVEN AND UNLABORED. O2 ON VIA NC AT 2L. WILL CONTINUE TO MONITOR. PT USES URINAL.
[2019-02-04 08:12] VITALS: BP 85/56
--- NOTE | 2019-02-04 11:35 | NUR ---
PT SITTING UP IN BED RESTING. CALL LIGHT IN REACH. PT DENIES NEEDS AT THIS TIME.
[2019-02-04 11:49] VITALS: BP 87/66
--- NOTE | 2019-02-04 16:21 | NUR ---
PT SITTING UP IN BED. CALL LIGHT IN REACH. PT DENIES NEEDS AT THIS TIME. PAIN PILL GIVEN FOR BACK PAIN. WILL CONTINUE TO MONITOR.
--- NOTE | 2019-02-04 18:12 | NUR ---
PATIENT SITTING UP IN BED EATING SUPPER.
[2019-02-04 18:13] VITALS: BP 80/56
--- NOTE | 2019-02-04 19:25 | NUR ---
PT NOTED SITTING UP IN WC WATCHING TV. ALERT AND ORIENTED X 3. DENIES ANY DISCOMFORT AT THIS TIME. NO NEEDS VOICED. URINAL NOTED WITH A SMALL AMOUNT OF CLOUDY URINE IN IT. PT STATES HE IS STILL HAVING TROUBLE VOIDING, BUT THAT IT IS GETTING BETTER. O2 IS ON @ 2LPM PER NC. NO SOB NOTED. SR'S ARE UP X 2 IN BED. CALL LIGHT AND BEDSIDE TABLE ARE WITHIN EASY REACH.
--- NOTE | 2019-02-04 21:27 | NUR ---
PT SITTING IN CHAIR IN HIS ROOM WATCHING TV. NO NEEDS VOICED.
[2019-02-05 00:21] VITALS: BP 98/57
--- NOTE | 2019-02-05 01:51 | NUR ---
RESTING IN BED WITH RESPIRATIONS UNLABORED. NO DISTRESS NOTED. CALL LIGHT IN REACH.
--- NOTE | 2019-02-05 05:08 | NUR ---
PT SITTING ON SIDE OF BED WATCHING TV. NO NEEDS VOICED.
[2019-02-05 05:46] VITALS: BP 101/53
[2019-02-05 07:54] LABS: BASOPHILS 0.3 % (0-2); EOSINOPHILS 4.9 % (0-7); HEMATOCRIT 37.3 % (42.0-54.0); HEMOGLOBIN 12.6 g/dL (13.5-17.5); IMMATURE GRANULOCYTES 0.5 % (0-5); LYMPHOCYTES 8.7 % (15-50); MCH 32.2 pg (26.0-34.0); MCHC 33.8 g/dL (31.0-37.0); MCV 95.4 fL (80.0-100.0); MEAN PLATELET VOLUME 10.4 fL (7.4-10.4); NEUTROPHILS 70.6 % (40-80); PLATELET COUNT 165 10x3/uL (130-400); RBC 3.91 10x6/uL (4.20-6.10); RDW 17.7 % (11.5-14.5); WBC 9.7 10x3/uL (4.8-10.8)
--- NOTE | 2019-02-05 08:00 | NUR ---
PATIENT IS ALERT/ORIENT. CALL LIGHT WITHIN REACH. VOICES NO NEEDS AT THIS TIME. WILL CONTINUE WITH PLAN OF CARE
[2019-02-05 08:01] LABS: ANION GAP 17.9 mmol/L (8-16); CALCIUM 8.5 mg/dL (8.5-10.1); CARBON DIOXIDE 24.7 mmol/L (21.0-32.0); CREATININE - SERUM 6.9 mg/dL (0.6-1.3); POTASSIUM - SERUM 4.6 mmol/L (3.5-5.1)
[2019-02-05 08:26] LABS: INR 1.7 (0.85-1.17); PROTIME 19.4 SECONDS (11.6-15.0)
--- NOTE | 2019-02-05 09:36 | NUR ---
Kendrick JACKSON APN INTO SEE PATIENT. NEW ORDERS RECEIVED.
--- NOTE | 2019-02-05 09:37 | NUR ---
UP FOR THERAPY AT THIS TIME,
[2019-02-05 11:57] VITALS: BP 89/62
--- NOTE | 2019-02-05 12:27 | NUR ---
Renal ADA diet with 78% average po intake BM yesterday Offered Nepro and pt denied for now Pt reports appetite is not great but he is eating Encouraged good po intake to help optimize progress in therapy RD following
--- NOTE | 2019-02-05 14:10 | NUR ---
PATIENT TAKEN DOWN TO DIALYSIS CLINIC FOR TX
[2019-02-05 18:14] VITALS: BP 99/46
--- NOTE | 2019-02-05 19:30 | NUR ---
PT IS RESTING IN BED WITH EYES CLOSED. AWOKE EASILY TO VERBAL STIMULI. ALERT AND ORIENTED X 3. DENIES ACUTE PAIN OR DISCOMFORT AT THIS TIME. NO NEEDS VOICED. 1000 CC FLUID RESTRICTION OBSERVED. PT IS VERY COMPLIANT WITH THIS. SR'S ARE UP X 2 IN BED. CALL LIGHT AND BEDSIDE TABLE ARE WITHIN EASY REACH.
--- NOTE | 2019-02-05 21:27 | NUR ---
PT IS SITTING IN A WC IN HIS ROOM WATCHING TV. NO ACUTE DISTRESS NOTED.
[2019-02-06 00:52] VITALS: BP 101/53
--- NOTE | 2019-02-06 01:20 | NUR ---
PT RESTING IN BED WITH EYES CLOSED
--- NOTE | 2019-02-06 05:12 | NUR ---
PT ASLEEP NO NEEDS NOTED FLUIDS AND CALL LIGHT WITHIN REACH
[2019-02-06 05:33] VITALS: BP 87/51
--- NOTE | 2019-02-06 06:00 | NUR ---
PT ASLEEP NO NEEDS NOTED CALL LIGHT WITHIN REACH
[2019-02-06 06:29] LABS: BASOPHILS 0.3 % (0-2); EOSINOPHILS 5.3 % (0-7); HEMATOCRIT 37.1 % (42.0-54.0); HEMOGLOBIN 12.2 g/dL (13.5-17.5); IMMATURE GRANULOCYTES 0.4 % (0-5); LYMPHOCYTES 8.3 % (15-50); MCH 31.9 pg (26.0-34.0); MCHC 32.9 g/dL (31.0-37.0); MCV 96.9 fL (80.0-100.0); MEAN PLATELET VOLUME 10.3 fL (7.4-10.4); MONOCYTES 16.1 % (2-11); NEUTROPHILS 69.6 % (40-80); PLATELET COUNT 155 10x3/uL (130-400); RBC 3.83 10x6/uL (4.20-6.10); RDW 17.8 % (11.5-14.5); WBC 7.8 10x3/uL (4.8-10.8)
[2019-02-06 06:50] LABS: INR 1.74 (0.85-1.17); PROTIME 19.7 SECONDS (11.6-15.0)
[2019-02-06 06:56] LABS: ANION GAP 14.2 mmol/L (8-16); CALCIUM 8.5 mg/dL (8.5-10.1); CARBON DIOXIDE 28.6 mmol/L (21.0-32.0); CREATININE - SERUM 5.3 mg/dL (0.6-1.3)
[2019-02-06 06:58] LABS: POTASSIUM - SERUM 3.8 mmol/L (3.5-5.1)
--- NOTE | 2019-02-06 08:00 | NUR ---
SHIFT ASSMT COMPLETED.SITTING UP ON SIDE OF BED.DENIES NEEDS.CL IN REACH.BREAKFAST TRAY GIVEN.
--- NOTE | 2019-02-06 11:00 | NUR ---
STATED HAVING SOME CHEST PAIN.TAKEN BACK TO ROOM FROM THERAPY.VSS NO MUCH CHANGED FROM 0600.WILL CONTINUE TO MONITOR.ON NITROGLYCERIN PATCH.
[2019-02-06 12:04] VITALS: BP 89/60
--- NOTE | 2019-02-06 16:26 | NUR ---
PATIENT ADMITTED TO REHAB FROM ACUTE FLOOR. HE IS A CLINET OF [facility] ON 1ST SHIFT. DME AT HOME IS A C-PAP. WILL CONTIUE TO FOLLOW WITH PATIENT AND WILL ASSIST WITH DISCHARGE NEEDS.
[2019-02-06 18:00] VITALS: BP 94/69
--- NOTE | 2019-02-06 19:45 | NUR ---
PT SITTING UP ON SIDE OF BED. CALL LIGHT IN REACH. BED IN LOW. SIDE RAILS X2. RESP EVEN AND UNLABORED. O2 ON VIA NC AT 2L. PT DENIES NEEDS OR PAIN AT THIS TIME. WILL CONTINUE TO MONITOR.
[2019-02-07] VITALS: BP 95/67
--- NOTE | 2019-02-07 02:13 | NUR ---
PT RESTING QUIETLY EYES CLOSED. CALL LIGHT IN REACH. NO SIGNS OF DISTRESS OR PAIN
--- NOTE | 2019-02-07 02:24 | NUR ---
PT ASLEEP NO NEEDS NOTED FLUID RESTRICTIONS, CALL LIGHT WITHIN REACH
[2019-02-07 06:00] VITALS: BP 94/65
[2019-02-07 06:18] LABS: INR 1.95 (0.85-1.17); PROTIME 21.6 SECONDS (11.6-15.0)
--- NOTE | 2019-02-07 06:21 | NUR ---
PT SITTING UP ON SIDE OF BED. DENIES NEEDS AT THIS TIME CALL LIGHT IN REAC
--- NOTE | 2019-02-07 08:00 | NUR ---
SHIFT ASSMT COMPLETED.DENIES NEEDS.
[2019-02-07 11:49] VITALS: BP 92/63
--- NOTE | 2019-02-07 12:00 | NUR ---
SITTING UP EATTING LUNCH.DENIES NEEDS.
--- NOTE | 2019-02-07 13:15 | NUR ---
TO HD/WC.
--- NOTE | 2019-02-07 15:30 | NUR ---
BACK FROM HD.
--- NOTE | 2019-02-07 16:53 | NUR ---
CARE TEAM MEETING: PATIENT DOING WELL IN THERAPY. TENATIVE DISCHARGE DATE IS 02/13/19. WILL CONTINUE TO FOLLOW WITH PATIENT.
[2019-02-07 18:00] VITALS: BP 96/64
--- NOTE | 2019-02-07 19:46 | NUR ---
AWAKE AND ALERT. SITTING ON SIDE OF BED. STATES HE JUST DOESNT FEEL GOOD BUT NON-SPECIFIC AND DENIES PAIN. CURRENTLY BEING TREATED FOR UTI. LEFT CHEST MADISON-SPLIT IN PLACE. CALL LIGHT IN REACH.
[2019-02-08 00:22] VITALS: BP 100/68
--- NOTE | 2019-02-08 02:17 | NUR ---
AWAKE AND SITTING ON SIDE OF BED. DOESNT WANT TO LIE DOWN. RESPIRATIONS UNLABORED. NO DISTRESS NOTED.
[2019-02-08 06:30] VITALS: BP 95/69
[2019-02-08 07:53] LABS: INR 2.41 (0.85-1.17); PROTIME 25.5 SECONDS (11.6-15.0)
[2019-02-08 07:54] LABS: CALCIUM 8.8 mg/dL (8.5-10.1); CARBON DIOXIDE 25.6 mmol/L (21.0-32.0); CREATININE - SERUM 5.8 mg/dL (0.6-1.3); POTASSIUM - SERUM 4.6 mmol/L (3.5-5.1)
[2019-02-08 11:26] VITALS: BP 96/65
--- NOTE | 2019-02-08 13:38 | NUR ---
Nutrition Follow Up: Pt stated that his appetite is fair. RD encouraged pt to increase po intake as able and to make staff aware of any food preferences. Diet: Renal ADA with 1000 ml FR PO Intake: 82% meal avg BM: 02/06/19 Wt stable Labs reviewed Meds noted including Lasix Rec continue current diet. RD following.
[2019-02-08 18:07] VITALS: BP 97/51
--- NOTE | 2019-02-08 19:57 | NUR ---
AWAKE AND ALERT RESTING IN BED. STATES HE FEELS A LITTLE BETTER TODAY. RIGHT CHEST HEMISPLIT IN PLACE. HE STATES DIALYSIS WENT WELL TODAY. NO ACUTE DISTRESS NOTED. CALL LIGHT IN REACH.
[2019-02-09 00:11] VITALS: BP 108/72
--- NOTE | 2019-02-09 03:32 | NUR ---
SITTING ON SIDE OF BED. DOZES AT INTERVALS. REFUSES TO LIE DOWN. WILL MONITOR.
[2019-02-09 06:19] VITALS: BP 118/81
--- NOTE | 2019-02-09 07:04 | NUR ---
RESTING QUIETLY IN BED. NO S/S DISTRESS. RESP EFFORT NON LABORED. EYES CLOSED. BED IN LOWEST POSITION. CALL LIGHT IN REACH.
[2019-02-09 07:28] LABS: INR 3.57 (0.85-1.17); PROTIME 34.9 SECONDS (11.6-15.0)
--- NOTE | 2019-02-09 07:32 | NUR ---
SITTING UP IN BED WITH OXYGEN IN PLACE AT 2LNC. RESP EFFORT LABORED AT 22/MIN. TONGUE SLIGHTLY PURPLE. DOES NOT FOLLOW SIMPLE COMMANDS. CONFUSED. THINKS HE IS AT [facility]. 4+ EDEMA NOTED TO BLE. LUNG SOUNDS DIMINISHED TO ALL LOBES. EYES ARE SWOLLEN AND WATERING. DR HUDSON ON FLOOR AND SAW PT. DR. THAO HAD ORDERED AM DIALYSIS. DIALYSIS CALLED AND DUE TO NURSE NOT BEING IN DIALYSIS ROOM HE COULD NOT START DIALYSIS YET. V/S 123/84 WHICH IS HIGH FOR HIM. HE WAS NOT ABLE TO EAT OR TAKE MEDS THIS AM DUE TO SOB. DR HUDSON SPOKE WITH DR THAO ON PHONE THIS AM ABOUT PT AND HIS CURRENT CONDITION. WAITING ON DIALYSIS TO CALL.....
--- NOTE | 2019-02-09 08:36 | NUR ---
TOOK PT TO DIALYSIS IN BED. MADE SURE DAILYSIS NURSE SAW NOTES FROM DR KEESHA LOPEZING "AIM FOR 3-4 LITERS UF WITH DIALYSIS" AND "DIALYSIS IN AM".
[2019-02-09 12:33] VITALS: BP 110/70
--- NOTE | 2019-02-09 14:04 | NUR ---
SITTING UP IN BED WITH EYES CLOSED. ON MELONIE MASK AT 31%. LUNG SOUNDS DIMINISHED. ABD LESS DISTENDED AFTER DIALYSIS. HIS APPETITE IS POOR. STILL ACTING LETHARGIC AND TIRED. WILL ANSWER CLOSED ENDED QUESTIONS AND OPEN EYES AND LOOK AT NURSE WITH REPEATED PROMPTING. 4+ EDEMA TO BLE STILL NOTED.
[2019-02-09 18:00] VITALS: BP 129/87
[2019-02-09 18:04] VITALS: BP 109/68
[2019-02-09 19:00] VITALS: BP 129/87
--- NOTE | 2019-02-09 19:23 | NUR ---
PATIENT IS SLEEPING. BED IS DOWN LOW WITH SIDE RAILS UP X2. CL IS IN REACH.
--- NOTE | 2019-02-09 22:49 | NUR ---
PT IS RESTING IN BED WITH EYES CLOSED. HE MUMBLES TO VERBAL STIMULI, BUT NO OTHER RESPONSE NOTED. O2 ON PER VENTI MASK. NO SOB NOTED.
[2019-02-10 00:01] VITALS: BP 125/77
--- NOTE | 2019-02-10 03:32 | NUR ---
PT RESTING IN BED WITH EYES CLOSED.
--- NOTE | 2019-02-10 05:40 | NUR ---
PT FOUND IN BED WITH NO HEARTBEAT OR RESPIRATIONS.
--- NOTE | 2019-02-10 05:55 | NUR ---
DR HUDSON NOTIFIED OF PTS . HE STATED HE WOULD CALL THE ER DOC TO PRONOUNCE.
--- NOTE | 2019-02-10 05:58 | NUR ---
SPOUSE, YARELI FOX NOTIFIED OF PTS . SHE STATED SHE COULD NOT TALK NOW, UNTIL SHE CALLED HER SON, BUT WOULD CALL BACK [facility]. [phone].
--- NOTE | 2019-02-10 06:03 | NUR ---
DR RODRIGUEZ HERE. PT PRONOUNCED. CAUSE OF , FATAL ARRYTHMIA.
--- NOTE | 2019-02-10 06:08 | NUR ---
[facility] CALLED. I WAS ON HOLD UNTIL 614. JEFFERY WITH THEIR ANSWERING SERVICE STATED SHE WOULD PAGE THEM.
--- NOTE | 2019-02-10 06:30 | NUR ---
NGUYEN FROM [facility] RETURNED CALL, AND WAS NOTIFIED OF . SHE STATED WE NEEDED TO CALL THEM BACK WITH HIS HOME INFORMATION BEFORE THEY ISSUED THE REFERENCE NUMBER.
--- NOTE | 2019-02-10 07:30 | NUR ---
RECIEVED REPORT.PT ..POST MORTEM CARE GIVEN.
--- NOTE | 2019-02-10 08:05 | NUR ---
SPOKE WITH .CONSENT [facility] TO TRANSPORT TO [facility].
--- NOTE | 2019-02-10 11:38 | NUR ---
BODY RELEASED TO [facility].
--- NOTE | 2019-02-12 09:20 | NUR ---
LATE ENTRY: ON 02/10/19 PATIENT HAD .
--- NOTE | 2019-02-12 10:06 | RHP ---
PATIENT: RAUL FOX JR MEDICAL RECORD: [id number] ACCOUNT: [id number] LOCATION:[id number] : 53 ADMISSION DATE: 01/31/19 REHABILITATION HISTORY AND PHYSICAL EXAMINATION POST ADMISSION PHYSICIAN EXAMINATION POST ADMISSION PHYSICAL EXAMINATION AND HISTORY AND PHYSICAL DATE OF ADMISSION: 01/31/2019 ADMITTING DIAGNOSIS: Uremic myopathy. HISTORY OF PRESENT ILLNESS: The patient is a 64-year-old gentleman, who presents to the inpatient rehab with a neurological diagnosis of uremic myopathy. He has got end-stage renal disease. He is on chronic hemodialysis. He has got known cardiomyopathy, diabetes, chronic hypotension. He is seen on a regular basis at the [facility]. He was transferred and admitted to [place] following a syncopal episode at [facility] on 01/21. He presented with cough, weakness, and shortness of breath. He got dialysis normally on Tuesday with increasing symptoms since Tuesday. Chest x-ray showed a right lower lobe infiltrate and congestive heart failure. He was admitted with nephrology consult. During his hospital course, his blood pressure ran in the 100 systolic range, which is a chronic problem for him. He has had carotid Dopplers done for syncope in the past that were negative. The infiltrate on her chest x-ray is seen to improve some with antibiotic therapy. He remains fatigued and weak. He has dyspnea on exertion and weaned on O2 down to 2 liters. He has been very fatigued. He has limited flexion and extension of his lower extremities. Previously, he was independent with ADLs and mobility without aid. He drove himself to dialysis on Tuesday, Tuesday, and Tuesday. He is highly motivated to regain his strength and be able to walk again. Barriers to his discharge are continued weakness, dyspnea on exertion, inability to walk without assistance. He is on continuous O2, and he uses CPAP at night. He is also high risk for fall. He is normally not on O2 at home apparently. Comorbidities in this patient include end-stage renal disease, hyperkalemia, cardiomegaly, right lower lobe infiltrate, renal failure, diabetes, hypothyroidism, neuropathy, mild CHF, fluid overload, hypotension, and dyspnea. PAST MEDICAL HISTORY: Significant for neuropathy, allergies, diabetes, thyroid problems, hypertension, pacemaker placement, defibrillator placement. He has had stents, coronary artery disease, BiPAP, acid reflux, arthritis, and shingles. PAST SURGICAL HISTORY: Includes gallbladder surgery and HemoSplit. ALLERGIES: VERSED, MORPHINE, AND DILAUDID. CURRENT MEDICATIONS: Include tramadol 50 mg every 6 hours p.r.n. He is on Coumadin 3 mg daily, Pepcid 20 mg daily. He is on Tradjenta 5 mg daily. He is on Synthroid 200 mcg daily, Lexapro 10 mg daily, Colace 100 mg daily, carvedilol 6.25 mg daily, aspirin chewable 81 mg daily, Neurontin 300 mg at bedtime, furosemide 80 mg b.i.d., omega-3 one cap b.i.d., Benadryl 25 mg b.i.d., and Nitrostat p.r.n. HABITS: No alcohol or tobacco use. HISTORY AND PHYSICAL [id number] RAUL FOX JR FAMILY HISTORY: Noncontributory. SOCIAL HISTORY: The patient hopes to return back home. He does live over in the [facility]. REVIEW OF SYSTEMS: GENERAL: Does complain of some weakness and fatigue. HEENT: Denies cold, cough, or congestion. CARDIOVASCULAR: Denied chest pain at this time, but he has taken 5 nitros since he has been here, so he is having some chest pain on and off. PHYSICAL EXAMINATION: VITAL SIGNS: Stable. He is afebrile. GENERAL: Well-developed gentleman, in no acute distress upon exam. HEENT: Normocephalic and atraumatic. Mucosa moist. NECK: Supple. No lymphadenopathy. LUNGS: Clear in the upper oates. He does have decreased breath sounds in the bases, right greater than left. HEART: Regular rate and rhythm. No murmurs, rubs, or gallops. ABDOMEN: Benign. EXTREMITIES: No clubbing, cyanosis, or edema. NEUROLOGIC: He does seem mentally intact, although he is somewhat weak. LABORATORY DATA: His white count is 12.5, H&H of 13 and 38, and platelet count is 144. His INR is 1.71. Sodium 125, potassium is 4.9, BUN and creatinine of 46 and 4.9, and blood sugar is noted to be 81. He has had some elevated troponins since he has been down here. ASSESSMENT: This is a 64-year-old gentleman admitted to the rehab with a working diagnosis of uremic myopathy. The patient has potential to make improvement. We will institute the following multidisciplinary therapies including, but not limited to physical, occupational, respiratory, speech, nutritional services, prosthetics and orthotics. Given his complex medical condition and risks for more complications, rehabilitation services cannot be provided at a low level of care such as a correction facility. PLAN: 1. Admit to [facility] for intensive inpatient therapy to include the following disciplines: A. Physical therapy to improve gait, all transfer skills and bed mobility to a modified independent level. B. Occupational therapy to improve activities of daily living to a modified independent level. C. Case management to assist with discharge planning and placement options. D. Nutrition to assist with nutritional needs. E. Rehabilitation nursing to assist in monitoring the patient's underlying medical condition and to assist with any type of bowel or bladder management. 2. The patient's current medications and medical care will be continued. 3. The patient will be placed on standard fall precautions. 4. The patient's estimated length of stay is approximately 7-10 days. 5. We will consider adding a long-acting nitroglycerin if he continues to take nitro as he is at this time, but he does have hypotension, so this is worrisome. TRANSINT:[id number] Voice Confirmation ID: [id number] DOCUMENT ID: [id number] HISTORY AND PHYSICAL [id number] RAUL FOX JR notes whether there has been none or any medical/functional change since admission: - No change since preadmission screen. ISA attests patient continues to be appropriate for IRF: - Continues to be appropriate. DL CHAPPELL MD at 1006 CC: [id number] DICTATION DATE: 02/01/19 0857 SHOE SEWING MACHINE OPERATOR AND TENDER: 02/01/19 0946 DIS IN 02/10/19 [facility] [address] [id number]
== END 2019-02-10 12:04 | DRG 91 ==
LOC: D.REHAB 15:36
PROVIDERS: Family Medicine; Internal Medicine Nephrology; ADMIT Emergency Medicine; ATTEND Emergency Medicine
DX: G72.89 Other specified myopathies (principal); N18.6 End stage renal disease; J18.1 Lobar pneumonia, unspecified organism; I13.2 Hypertensive heart and chronic kidney disease with heart failure and with stage 5 chronic kidney disease, or end stage renal disease; I42.9 Cardiomyopathy, unspecified; E11.22 Type 2 diabetes mellitus with diabetic chronic kidney disease; I50.9 Heart failure, unspecified; Z99.2 Dependence on renal dialysis; E87.5 Hyperkalemia; E03.9 Hypothyroidism, unspecified; I95.9 Hypotension, unspecified; E11.40 Type 2 diabetes mellitus with diabetic neuropathy, unspecified; R06.00 Dyspnea, unspecified; D64.9 Anemia, unspecified; I25.10 Atherosclerotic heart disease of native coronary artery without angina pectoris; G62.9 Polyneuropathy, unspecified